=== PATIENT | male | born 1955 | race Caucasian/White ===

== ENCOUNTER → 2022-07-16 | Outpatient (CLI) | payer MEDICARE, OTHER ==
--- NOTE | 2022-07-16 13:27 | CT ---
EXAMINATION TYPE: CT chest w con DATE OF EXAM: 07/16/2022 COMPARISON: None at this location HISTORY: Pulmonary nodule, status post partial lobectomy.r CT DLP: 236 mGycm, Automated exposure control for dose reduction was used. CONTRAST: Performed injected with 100ml mL of Isovue 370. TECHNIQUE: Axial images were obtained at 5 mm thick sections. Reconstructed images are reviewed on [employer] computer in the coronal plane. FINDINGS: Portion of the thyroid visualized is normal. No suspicious lung nodules or focal infiltrates are present. Emphysematous changes are in the upper l [facility]. There is a posterior nodule measuring 0.3 cm left lung. Series 4 image 16. Monitoring with follow-up chest CT 6 months. No enlarged mediastinal or hilar adenopathy is evident. The ascending aorta diameter at the level o f the main pulmonary artery is 3.2 cm. The main pulmonary artery diameter at the bifurcation is 2.[address] sections are obtained through the upper abdomen. Abdomen is essentially unremarkable. IMPRESSIONS: 1. Tiny nodule posterior left lung. Follow-up exam in 6 months to confirm stability is recommended.
== END | disposition home or self-care (01) ==
LOC: RADCTMAIN 12:27
PROVIDERS: ATTEND Family Medicine
DX: R91.1 Solitary pulmonary nodule (principal)
CPT/HCPCS: 71260; Q9967

== ENCOUNTER → 2023-01-15 | Outpatient (CLI) | payer MEDICARE, OTHER ==
--- NOTE | 2023-01-15 11:25 | CT ---
EXAMINATION TYPE: CT chest w con DATE OF EXAM: 01/15/2023 COMPARISON: 07/16/2022 HISTORY: f/u nodules CT DLP: 148.4 mGycm Automated exposure control for dose reduction was used. CONTRAST: CT scan of the chest is performed with IV Contrast, patient injected with 100 mL of Isovue 300. FINDINGS: LUNGS: Mild upper lobe emphysematous change. Calcified pleural-based nodule left lower lobe superior segment image 19 series 4 is unchanged and measures 3 mm. There is a new left lower lobe pulmonary no dule measuring 8.7 mm image 45 series 4. No additional nodules are present. No infiltrate or volume l oss. No evidence of pleural effusion. MEDIASTINUM: There are no greater than 1 cm hilar or mediastinal lymph nodes. No pericardial effusi on is seen. Thoracic aorta is of normal caliber. The heart is not enlarged. UPPER ABDOMEN: There is a new left adrenal nodule measuring 2.6 x 1.7 cm. Metastatic disease is not e xcluded. CT of the abdomen and pelvis is recommended. OTHER: No additional significant abnormality is seen. IMPRESSION: 1. New pulmonary nodule left lower lobe measuring 8.7 mm. In addition there is a new left adrenal nod ule. Consider PET/CT for further evaluation.
== END | disposition home or self-care (01) ==
LOC: RADCTMAIN 09:56
PROVIDERS: ATTEND Family Medicine
DX: R91.1 Solitary pulmonary nodule (principal); E27.9 Disorder of adrenal gland, unspecified
CPT/HCPCS: 82565; 84520; 71260; 36415; Q9967

== ENCOUNTER → 2023-01-25 | Outpatient (CLI) | payer MEDICARE, OTHER ==
--- NOTE | 2023-01-27 19:23 | CT ---
EXAMINATION TYPE: CT abdomen pelvis w con CT DLP: 399.9 mGycm, Automated exposure control for dose reduction was used. DATE OF EXAM: 01/25/2023 11:54 AM COMPARISON: CT abdomen pelvis most recent from chest 01/15/2023 and chest 07/16/2022. CLINICAL INDICATION:Male, 67 years old with history of E27.8 disorder of adrenal gland; adrenal mass history of cancer. TECHNIQUE: Axial CT of the abdomen and pelvis. Sagittal and coronal reformats were created on a [employer] workstation. Contrast used:100 mL of Isovue 300 with IV Contrast, Oral contrast used: with Oral Contrast FINDINGS: LOWER CHEST: Left lower lobe pulmonary nodule redemonstrated measuring at least 10 x 6 mm. ABDOMEN LIVER: Unremarkable GALLBLADDER AND BILE DUCTS: Unremarkable. PANCREAS: Unremarkable. SPLEEN: Unremarkable. ADRENAL GLANDS: Left adrenal gland mass measuring 2.0 cm with some irregular linear enhancing compone nt noted. The right adrenal gland is unremarkable. KIDNEYS AND URETERS: No evidence of hydronephrosis or renal calculus. The ureters are unremarkable. PELVIS BLADDER: Unremarkable REPRODUCTIVE: Unremarkable. ABDOMEN & PELVIS STOMACH AND BOWEL: No evidence of bowel obstruction. Scattered colonic diverticula. PERITONEUM/RETROPERITONEUM: No evidence of pneumoperitoneum or free fluid. VASCULATURE: Infrarenal abdominal aorta ectasia up to 2.7 cm. Biiliac stent grafts which appear paten t. External iliac stent graft also present. MUSCULOSKELETAL: No acute osseous abnormalities, multilevel disc degeneration changes throughout the spine. LYMPH NODES: No gross evidence for lymphadenopathy. SOFT TISSUE/ABDOMINAL WALL: Left fat-containing inguinal hernia. IMPRESSION: 1. Left adrenal nodule measuring up to 2.0 cm remains indeterminate given nonadrenal mass protocol t doroteo. Finding could represent metastatic disease given pulmonary nodule and that this is not seen on 07/16/2022. 2. Given the pulmonary nodule is present and new from 07/16/2022 CT a PET/CT it remains recommended. 3. Patent bilateral iliac and right external iliac stent grafts.
== END | disposition home or self-care (01) ==
LOC: RADCTMAIN 09:51
PROVIDERS: ATTEND Family Medicine
DX: E27.8 Other specified disorders of adrenal gland (principal); R91.1 Solitary pulmonary nodule; Z95.828 Presence of other vascular implants and grafts
CPT/HCPCS: 82565; 84520; 74177; 36415; Q9967

== ENCOUNTER → 2023-02-15 | Outpatient (CLI) | payer MEDICARE, OTHER ==
--- NOTE | 2023-02-16 13:39 | PE ---
EXAMINATION TYPE: PET CT fusion skull to thigh DATE OF EXAM: 02/15/2023 CLINICAL INDICATION:Male, 68 years old with history of C34.32 lung ca; TECHNIQUE: Following the intravenous administration of 9.4 mCi of F-18 FDG, whole body images are p erformed from the skull base to the midthigh. Images are reviewed on the computer in the coronal, ax ial, and sagittal planes. Reconstructed rotating images are created on independent workstation and r eviewed on the computer. A non-contrast CT is performed in conjunction with the PET scan. Glucose l evel 99 mg/dL COMPARISON: CT 01/15/2023, 01/25/2023 07/16/2022, PET/CT None, FINDINGS: Mediastinal SUV mean is 1.5. Hepatic parenchyma SUV mean is 2.1. SKULL BASE AND NECK: No suspicious radiotracer activity. CHEST, MEDIASTINUM, AND HILAR REGION: * Postsurgical changes right upper lung there is mild mild FDG activity along the medial aspect Max SUV 2.5. * Left lower lobe 9 x 5 mm pulmonary nodule Max SUV 0.9. ABDOMEN AND PELVIS: Left pulmonary nodule with increased FDG activity max SUV 8.2 measuring 2.7 x 2.7 cm. OSSEOUS STRUCTURES: No suspicious radiotracer activity. OTHER CT: Atherosclerosis of the carotid bifurcation. Infrarenal aortic fusiform aneurysmal dilation up to 2.8 cm. Aortocaval biiliac stent graft is present. Right external iliac stent graft is present . Moderate emphysema changes are seen throughout the lungs. IMPRESSION: 1. Left adrenal nodule compatible with metastatic disease. 2. Left lower lung pulmonary nodules which is also suspicious for metastatic disease. 3. Mild FDG activity along the surgical margin medially could represent treatment change versus pers istent disease, attention follow-up imaging.
== END | disposition home or self-care (01) ==
LOC: RADPETMAIN 12:14
PROVIDERS: ATTEND Family Medicine
DX: C34.32 Malignant neoplasm of lower lobe, left bronchus or lung (principal); R91.8 Other nonspecific abnormal finding of lung field
CPT/HCPCS: 78815; A9552

== ENCOUNTER → 2023-07-12 | Outpatient (CLI) | payer MEDICARE, OTHER ==
--- NOTE | 2023-07-14 22:54 | PE ---
EXAMINATION TYPE: PET CT fusion skull to thigh DATE OF EXAM: 07/12/2023 COMPARISON: 01/25/2023 CT abdomen and pelvis Prior PET/CT: 02/15/2023 HISTORY: Neoplasm uncertain behavior left adrenal gland TECHNIQUE: Following the intravenous administration of 13.5 mCi of F-18 FDG, whole body images are p erformed from the skull base to the midthigh. Images are reviewed on the computer in the coronal, ax ial, and sagittal planes. Reconstructed rotating images are created on independent workstation and r eviewed on the computer. A localization and attenuation correction CT is performed in conjunction w ith the PET scan. DLP: 256.09 mGycm SCAN: Subsequent Blood glucose: 96 mg/dL Average Mediastinum SUV: 1.63 Average Liver SUV: 2.01 FINDINGS: NECK: No abnormal uptake THORAX: There may be some mild increased uptake within the posterior superior right hilar region, juan ge 79, SUV 2.39. Some mild increased uptake may be within the aortopulmonic window, image 79, SUV 2.0 5. There is a nodule within the posterior right lung base with an SUV value of 1.96, image 25. This is i ncreasing from comparison. ABDOMEN: There is mild uptake within the left adrenal gland with SUV of 2.06. This is diminished from the comparison previously 6.66. There is some uptake within the subcutaneous tissues right lateral abdomen, image 135, SUV 1.95. This is increased from comparison. Subcutaneous neoplasm is not excluded. PELVIS: No abnormal uptake. There is uptake within the urinary bladder and with blooming effects to the expected regions of the u reters. OSSEOUS STRUCTURES: No abnormal uptake LOCALIZATION CT: Abdominal aortic aneurysm with stenting is evident. COMPARISON: Previous marked uptake within the left adrenal gland is diminished. Previous SUV 6.66. Up take within the posterior left lung nodule as previously 0.86 and has increased over the interval. IMPRESSION: 1. Increasing uptake within the posterior left lung nodule. Small neoplasm should be considered withi n the differential. This is intermediate SUV and other etiologies should be considered. 2. Suspicion of developing right suprahilar and aortopulmonic window abnormal adenopathy with uptake. This is new from comparison. 3. Previous marked uptake within the left adrenal gland has significantly diminished over the interva l. 4. There may be developing subcutaneous abnormal uptake in the right lateral abdomen and flank.
== END | disposition home or self-care (01) ==
LOC: RADPETMAIN 07:52
PROVIDERS: ATTEND Internal Medicine
DX: D44.12 Neoplasm of uncertain behavior of left adrenal gland (principal); R91.1 Solitary pulmonary nodule
CPT/HCPCS: 78815; A9552

== ENCOUNTER → 2023-09-19 | Outpatient (CLI) | payer MEDICARE, OTHER ==
--- NOTE | 2023-09-22 14:15 | PE ---
EXAMINATION TYPE: PET CT fusion skull to thigh DATE OF EXAM: 09/19/2023 CLINICAL INDICATION:Male, 68 years old with history of D44.12 adrenal ca; TECHNIQUE: Following the intravenous administration of 12.0 mCi of F-18 FDG, whole body images are performed from the skull base to the midthigh. Images are reviewed on the computer in the coronal, a xial, and sagittal planes. Reconstructed rotating images are created on independent workstation and reviewed on the computer. A non-contrast CT is performed in conjunction with the PET scan. Glucose level 86 mg/dL CT DLP: 207 mGycm, Automated exposure control for dose reduction was used. COMPARISON: CT None, PET/CT 07/12/2023., FINDINGS: Mediastinal SUV mean is 2.7. Hepatic parenchyma SUV mean is 2.1. SKULL BASE AND NECK: No suspicious radiotracer activity. CHEST, MEDIASTINUM, AND HILAR REGION: * Right lower paratracheal lymph node max SUV 4.8 previously not present. * Left 10 L lymph node with increased metabolic activity max SUV 5.0, previously not seen. * Left lower lobe nodule measuring 15 mm Max SUV 4.2, previously 2.0. Previously measuring 11 mm. ABDOMEN AND PELVIS: * Left adrenal Adrenal nodule Max SUV 5.6 previously 2.2. * Right lateral abdomen uptake on prior is felt to be contamination artifact. MUSCULOSKELETAL STRUCTURES: No suspicious radiotracer activity. OTHER CT: Atherosclerosis of the carotid bifurcation. Infrarenal aortic fusiform aneurysmal dilation up to 2.8 cm. Aortocaval biiliac stent graft is present. Right external iliac stent graft is present . Moderate emphysema changes are seen throughout the lungs. IMPRESSION: 1. Findings suspicious for neoplasm particularly involving the left lower lobe pulmonary nodule whic h is increase in size and metabolic activity. There is also interval increase in left adrenal nodule metabolic activity as well. 2. Indeterminate lymph nodes in the mediastinum possibly neoplastic versus infectious/inflammatory.
== END | disposition home or self-care (01) ==
LOC: RADPETMAIN 10:44
PROVIDERS: ATTEND Internal Medicine
DX: D44.12 Neoplasm of uncertain behavior of left adrenal gland (principal); R91.1 Solitary pulmonary nodule
CPT/HCPCS: 78815; A9552

== ENCOUNTER → 2023-10-12 | Outpatient (CLI) | payer MEDICARE, OTHER ==
--- NOTE | 2023-10-13 10:09 | MR ---
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 The patient was then given intravenous contrast and multi planar, T1 fat-saturation images wer e obtained. IV Contrast: 5.5 cc Gadavist FINDINGS: The álvarez-white junctions, ventricular system, basal cisterns appear unremarkable. Diffusion-weighted imaging shows no evidence of restricted diffusion to suggest acute/subacute infarct. Intracranial ar terial flow voids are maintained. Midline structures show no abnormality. Scattered foci of high T2 s ignal intensity are seen within the periventricular white matter. The susceptibility weighted images do not reveal any evidence for micro-hemorrhage. After administration of gadolinium, no abnormal enha ncement is seen. The bone marrow signal is within normal limits. Paranasal sinuses and mastoid air cells: Mild scattered paranasal sinus disease. Visualized orbits: Orbital contents are intact. IMPRESSION: 1. No evidence of intracranial mass, acute/subacute infarct, or abnormal enhancement. 2. Nonspecific white matter changes, likely related to small vessel ischemic disease.
== END | disposition home or self-care (01) ==
LOC: RADMRIMAIN 11:01
PROVIDERS: ATTEND Radiology Radiation Oncology
DX: C79.72 Secondary malignant neoplasm of left adrenal gland (principal); C80.1 Malignant (primary) neoplasm, unspecified; R90.82 White matter disease, unspecified
CPT/HCPCS: 70553; A9585

== ENCOUNTER → 2024-02-23 | Outpatient (CLI) | payer MEDICARE, OTHER ==
--- NOTE | 2024-02-24 08:05 | PE ---
EXAMINATION TYPE: PET CT fusion skull to thigh DATE OF EXAM: 02/24/2024 COMPARISON: CT chest abdomen 12/05/2023 Prior PET/CT: 09/19/2023 HISTORY: Malignancy left lung TECHNIQUE: Following the intravenous administration of 10.67 mCi of F-18 FDG, whole body images are performed from the skull base to the midthigh. Images are reviewed on the computer in the coronal, a xial, and sagittal planes. Reconstructed rotating images are created on independent workstation and reviewed on the computer. A localization and attenuation correction CT is performed in conjunction with the PET scan. DLP: 232.57 mGycm SCAN: Subsequent Blood glucose: 102 mg/dL Average Mediastinum SUV: 1.66 Average Liver SUV: 2.05 FINDINGS: NECK: No abnormal uptake THORAX: The right supraclavicular region there is a focus of increased radiotracer measuring 2.5. Coco ge 68. There is a small focus of radiotracer within the superior mediastinum, image 70, SUV 2.80. There is some mild increased uptake within densities within the left lower lobe, example image 117, S UV 2.5 to. Some additional smaller milder areas of uptake or adjacent, example image 124, SUV 1.18. ABDOMEN: No abnormal uptake PELVIS: No abnormal uptake OSSEOUS STRUCTURES: There is some mild increased uptake at the right first costovertebral junction wi th an SUV of 2.79. Degenerative changes are suspected. Metastasis is not excluded. Similar mild uptak e is the left upper costovertebral junction, image 75, SUV 2.2. LOCALIZATION CT: There is enlarging prominence of the left adrenal gland comparison. However, uptake is diminished from prior study. COMPARISON: The uptake within the costovertebral junctions is new. Upper mediastinal uptake is new. P rior pretracheal and aortopulmonic window uptake is not identified on the current exam. Density withi n the posterior left lung is smaller with diminished radiotracer current exam. Uptake within the enla rged left adrenal gland appears diminished from comparison IMPRESSION: 1. Resolving uptake within a left posterior lung mass. Prior mediastinal uptake and uptake within the left adrenal gland is diminished from comparison. 2. There is new uptake identified within the superior mediastinum and couple of costovertebral juncti ons not evident on the prior study. New metastasis are not excluded at these levels.
== END | disposition home or self-care (01) ==
LOC: RADPETMAIN 12:28
PROVIDERS: ATTEND Radiology Radiation Oncology
DX: C78.02 Secondary malignant neoplasm of left lung (principal); C77.1 Secondary and unspecified malignant neoplasm of intrathoracic lymph nodes; C79.72 Secondary malignant neoplasm of left adrenal gland; C80.1 Malignant (primary) neoplasm, unspecified; R91.8 Other nonspecific abnormal finding of lung field
CPT/HCPCS: 78815; A9552

== ENCOUNTER → 2024-04-23 | Outpatient (CLI) | payer MEDICARE, OTHER ==
--- NOTE | 2024-04-25 09:44 | PE ---
EXAMINATION TYPE: PET CT fusion skull to thigh DATE OF EXAM: 04/23/2024 CLINICAL INDICATION:Male, 69 years old with history of C34.31 LUNG CANCER; TECHNIQUE: Following the intravenous administration of 9.18 mCi of F-18 FDG, whole body images are performed from the skull base to the midthigh. Images are reviewed on the computer in the coronal, a xial, and sagittal planes. Reconstructed rotating images are created on independent workstation and reviewed on the computer. A non-contrast CT is performed in conjunction with the PET scan. Glucose level 103 mg/dL CT DLP: 191 mGycm, Automated exposure control for dose reduction was used. COMPARISON: CT None, PET/CT 02/24/2024, MRI: None FINDINGS: Mediastinal SUV mean is 2.0. Hepatic parenchyma SUV mean is 2.4. SKULL BASE AND NECK: No suspicious radiotracer activity. CHEST, MEDIASTINUM, AND HILAR REGION: * Left paratracheal lymph node measuring Max SUV 4.1 measuring 5 mm previously max SUV 2.9. * Left 10 L lymph node with increased metabolic activity max SUV 5.0, previously not seen. * Left lower lobe nodule measuring 15 mm Max SUV 4.2, previously 2.0. Previously measuring 11 mm. ABDOMEN AND PELVIS: * Left adrenal Adrenal nodule Max SUV 5.6 previously 2.2. * Right segment 6 of the liver max SUV 11.1 and 63.2 in this area. * Uptake under the Rubén of the diaphragm on the left Max SUV 5.0, previously 1.8. Left adrenal gland nodular uptake more lateral max SUV 4.5 and more anterior medial maxillary 4.1. This has a different morphology with decreased mass but increased metabolic activity compared to prior. MUSCULOSKELETAL STRUCTURES: Increasing metabolic activity of right transverse process of T1 max SUV 9.0, previously 2.9. Increasi ng metabolic activity of the left transverse process of T4 max SUV 9.8, previously 2.2. OTHER CT: Atherosclerosis of the carotid bifurcation. Infrarenal aortic fusiform aneurysmal dilation up to 2.8 cm. Aortocaval biiliac stent graft is present. Right external iliac stent graft is present . Moderate emphysema changes are seen throughout the lungs. IMPRESSION: Progression of disease with new/increasing metabolic activity within the T1 and T4 vertebral bodies, new lesion in the right hepatic lobe and decreased volume but increased metabolic activity of the lef t adrenal uptake. Additionally left maribell of diaphragm focus of uptake is suspicious for metastatic di sease.
== END | disposition home or self-care (01) ==
LOC: RADPETMAIN 10:58
PROVIDERS: ATTEND Radiology Radiation Oncology
DX: C34.31 Malignant neoplasm of lower lobe, right bronchus or lung (principal); C78.02 Secondary malignant neoplasm of left lung; C77.1 Secondary and unspecified malignant neoplasm of intrathoracic lymph nodes; C80.1 Malignant (primary) neoplasm, unspecified; C79.72 Secondary malignant neoplasm of left adrenal gland
CPT/HCPCS: 78815; A9552

== ENCOUNTER → 2024-05-11 | Day surgery (SDC) | payer MEDICARE, OTHER ==
--- NOTE | 2024-06-18 15:00 | CT ---
EXAMINATION TYPE: CT biopsy liver DATE OF EXAM: 06/18/2024 1:18 PM CLINICAL INDICATION:Male, 69 years old with history of Lung CA; COMPARISON: 04/23/2024 ATTENDING: Dr. Jose La TECHNIQUE: CT guided percutaneous biopsy of using coaxial method. One or more CT dose reduction strategies were utilized during this examination. Total CT dose 965 mGycm. FINDINGS: The procedure was explained to the patient including risks of bleeding, bruising, infection, damage t o nearby organs and need for additional therapy including potential surgery. All questions were answ ered and consent was obtained. The previous studies were reviewed. The patient was placed on the CT couch in the supine position. The overlying skin was marked and prepped using sterile method. Timeout was taken per protocol. Follo wing administration of local anesthesia a 17 gauge coaxial needle was introduced on the right hepatic lobe mass. The coaxial needle tip was directed into the mass with CT guidance. Multiple 18 gauge c oaxial biopsies were then obtained. Following the procedure the needle was removed and sterile diego ssing was applied to the percutaneous site. Post biopsy imaging demonstrated no evidence of hemorrha ge. Patient was taken for postprocedure observation in stable condition. IMPRESSIONS: Status post percutaneous right hepatic lobe mass. mass biopsy as described above. Pathology results p ending.
== END ==
LOC: RADPROMAIN 02-12 09:00
PROVIDERS: ATTEND Internal Medicine
DX: C34.31 Malignant neoplasm of lower lobe, right bronchus or lung
CPT/HCPCS: 47000; 77012; 88307; 88313; 88341; 88342

== ENCOUNTER → 2024-08-20 | Outpatient (CLI) | payer MEDICARE, OTHER ==
[2024-08-20 12:37] LABS: ALT 27 U/L (4-49); AST 26 U/L (17-59); African American GFR (CKD) 80 (>60 ml/min/1.73 sqM); Albumin 3.5 g/dL (3.5-5.0); Albumin/Globulin Ratio 1.3; Alkaline Phosphatase 101 U/L (38-126); Amylase 51 U/L (30-110); Anion Gap 6 mmol/L; Blood Urea Nitrogen 41 mg/dL (9-20); Calcium 9.9 mg/dL (8.4-10.2); Carbon Dioxide 31 mmol/L (22-30); Chloride 97 mmol/L (98-107); Globulin 2.6 g/dL; Glucose 137 mg/dL (74-99); Lipase 83 U/L (23-300); Non-African American GFR(CKD) 69 (>60 ml/min/1.73 sqM); Potassium 4.4 mmol/L (3.5-5.1); Sodium 134 mmol/L (137-145); Total Bilirubin 0.8 mg/dL (0.2-1.3); Total Protein 6.1 g/dL (6.3-8.2)
--- NOTE | 2024-08-20 13:35 | CT ---
EXAMINATION TYPE: CT abdomen pelvis w con CT DLP: 798 mGycm, Automated exposure control for dose reduction was used. DATE OF EXAM: 08/20/2024 1:13 PM COMPARISON: PET CT 04/23/2024, 02/24/2024, CT chest abdomen 12/06/2023, CT abdomen and pelvis 01/25/2023 CLINICAL INDICATION:Male, 69 years old with history of C34.32 MALIGNANT NEOPLASM OF LOWER LOBE, LEFT BRON; 10 pound wt loss in one week, pain, history of lung CA TECHNIQUE: Standard CT of the abdomen and pelvis following the administration of 100 cc of Isovue 3 00 IV contrast material. Coronal and sagittal reformats were performed. FINDINGS: LOWER CHEST: Minimal linear scarring and/or atelectasis within the left lower lobe. ABDOMEN LIVER: Increasing size of inferior right hepatic lobe 4.2 cm hypodense heterogenous lesion (series 3, image 31). Additional new hypodense satellite lesion measuring up to 7 mm (series 3, image 29). Port al venous system appears patent. GALLBLADDER AND BILE DUCTS: Unremarkable. PANCREAS: Unremarkable. SPLEEN: Couple of punctate calcified granulomas. ADRENAL GLANDS: Right adrenal gland is unremarkable. Similar thickening of the left adrenal gland. KIDNEYS AND URETERS: No evidence of hydronephrosis or renal calculus. The kidneys enhance symmetrical ly. Contrast is demonstrated within both collecting systems on the delayed phase. PELVIS BLADDER: Moderately distended. REPRODUCTIVE: Coarse calcifications of the prostate gland are identified. ABDOMEN & PELVIS STOMACH AND BOWEL: Stomach and duodenum are unremarkable. No focal bowel wall thickening or surroundi ng inflammatory changes. No evidence of bowel obstruction. PERITONEUM: No evidence of pneumoperitoneum or free fluid. VASCULATURE: Moderate atherosclerotic calcifications are present throughout the abdominal aorta and i ts branches. Bilateral common iliac artery stent is identified. Stable aneurysmal dilatation of the i nfrarenal abdominal aorta measuring up to 3.0 cm. Pelvic phleboliths. MUSCULOSKELETAL: No acute osseous abnormalities. No aggressive osseous lesion. Multilevel degenerativ e disc disease. Straightening of the normal lumbar lordosis. LYMPH NODES: No evidence for lymphadenopathy. SOFT TISSUE/ABDOMINAL WALL: Unremarkable IMPRESSION: 1. Enlarging inferior right hepatic lobe lesion now measuring up to 4.2 cm with new adjacent satellit e 0.7 cm nodule. Most consistent with progression of disease. 2. Stable thickening of the left adrenal gland. 3. Stable infrarenal abdominal aortic aneurysm measuring up to 3.0 cm. [facility], , 08/20/2024 1:33 PM
== END | disposition home or self-care (01) ==
LOC: RADCTMAIN 11:24
PROVIDERS: ATTEND Internal Medicine
DX: Z03.89 Encounter for observation for other suspected diseases and conditions ruled out (principal); C34.32 Malignant neoplasm of lower lobe, left bronchus or lung; R16.0 Hepatomegaly, not elsewhere classified; I71.43 Infrarenal abdominal aortic aneurysm, without rupture; E27.8 Other specified disorders of adrenal gland
CPT/HCPCS: 80053; 82150; 83690; 74177; Q9967

== ENCOUNTER → 2024-09-28 | Outpatient (CLI) | payer MEDICARE, OTHER ==
[2024-09-28 12:53] LABS: African American GFR (CKD) >90 (>60 ml/min/1.73 sqM); Blood Urea Nitrogen 19 mg/dL (9-20); Non-African American GFR(CKD) 86 (>60 ml/min/1.73 sqM)
--- NOTE | 2024-09-28 14:10 | CT ---
EXAMINATION TYPE: CT chest w con CT DLP: 111.8 mGycm, Automated exposure control for dose reduction was used. DATE OF EXAM: 09/28/2024 1:32 PM COMPARISON: PET CT 04/23/2024, 02/24/2024, 09/19/2023, 07/12/2023, CT chest abdomen 12/06/2023, CT chest , CT abdomen and pelvis 08/20/2024 CLINICAL INDICATION:Male, 69 years old with history of C34.32 LUNG CANCER; PHH, SOB TECHNIQUE: Multiple axial images were obtained through the chest following the administration of 100 cc of Isovue 300. . Coronal and sagittal reformats reviewed. FINDINGS: LUNGS/ PLEURA: No pleural effusion or pneumothorax. Advanced centrilobular emphysematous changes. Ne w irregular pulmonary nodular opacities identified within the right upper lung with examples includin g a right upper lung 2.2 x 1.2 cm opacity (series 4, image 24). A right upper lung 1.1 cm opacity (se christo 4, image 20). Dependent bilateral lower lung minimal atelectatic consolidative changes. Scattere d subtle reticular groundglass opacities throughout the lungs. Possibly related to pneumonitis. Posts urgical changes identified within the right upper lobe pneumonectomy. AIRWAY: Patent and unremarkable.. HEART: Size within normal limits.No pericardial effusion. MEDIASTINUM: No evidence of adenopathy. VASCULATURE: No thoracic aortic aneurysm. Atherosclerotic calcification of the aorta and its branche s. MUSCULOSKELETAL: No acute osseous abnormalities. Mild multilevel degenerative disc disease. Redemonst ration of destructive sclerotic/lytic lesion involving the left T4 transverse process. Additional reg ion identified within the posterior right T1 vertebral body. SOFT TISSUES/LYMPH NODES: Unremarkable. LOWER NECK: No significant findings. UPPER ABDOMEN: Couple punctate calcified granulomas within the spleen. Increasing size of inferior ri ght hepatic lobe hypodense lesions are prior examination measuring 5.4 and 1.4 cm, previously 4.2 and 0.7 cm before. Redemonstration of an infrarenal fusiform abdominal aortic aneurysm measures 3.0 cm. Similar thickening of the left adrenal gland. IMPRESSION: 1. Progression of disease with few new irregular spiculated opacities within the right lung suspiciou s for metastasis and marginal increase in size of hepatic lesions from prior exams. This can be furth er evaluated with PET/CT as clinically indicated. 2. Similar appearance of metastatic disease involving T1 and T4 osseous structures. 3. Similar abdominal aortic aneurysm measuring up to 3.0 cm. 4. Advanced COPD changes. [facility], , 09/28/2024 2:08 PM
== END | disposition home or self-care (01) ==
LOC: RADCTMAIN 12:06
PROVIDERS: ATTEND Internal Medicine
DX: C34.32 Malignant neoplasm of lower lobe, left bronchus or lung (principal); C79.51 Secondary malignant neoplasm of bone; I71.40 Abdominal aortic aneurysm, without rupture, unspecified; J44.9 Chronic obstructive pulmonary disease, unspecified
CPT/HCPCS: 82565; 84520; 71260; 36415; Q9967

== ENCOUNTER → 2024-10-10 | Outpatient (CLI) | payer MEDICARE, OTHER ==
--- NOTE | 2024-10-11 08:04 | MR ---
EXAMINATION TYPE: MR shoulder RT wo/w con DATE OF EXAM: 10/10/2024 2:44 PM COMPARISON: None. CLINICAL INDICATION: Male, 69 years old with history of C79.51 SECONDARY MALIGNANT NEOPLASM OF BONE, right shoulder pain, malignant neoplasm of bone, left lung, liver, lymph nodes, left adrenal gland. IV Contrast: 4.5 cc Gadobutrol (None if empty) TECHNIQUE: Multiplanar, multisequence images of the right shoulder is performed without and with 4.5 mL intravenous Gadobutrol gadolinium contrast. FINDINGS: Rotator Cuff: Intact infraspinatus tendon. Intact subscapularis tendon. Full-thickness retracted tear of at least majority of supraspinatus tendon to level of the acromion with gap measuring 1.7 cm AP d iameter sagittal image 23. Rotator cuff muscle bulk is preserved. Some edema in the inferior supraspi natus muscle bulk is noted. Acromioclavicular Joint: [id number] narrowing and moderate capsular hypertrophy is seen. Distal acromion morphology unremarkable. Glenohumeral Joint: No significant effusion. No significant spurring. Labrum: The labrum appears grossly intact given limitation of non-arthrogram study. Biceps Tendon: The long head of biceps is in normal location within bicipital groove. Bone marrow signal: No focal abnormal marrow signal is appreciated. No suspicious osseous enhancement is seen. Other: Known spiculated nodules in the right upper lungs are partially imaged. IMPRESSION: 1. No suspicious focal osseous lesion. 2. Significant retracted tear of at least majority of the supraspinatus tendon. [facility], , 10/11/2024 8:02 AM
== END | disposition home or self-care (01) ==
LOC: RADMRIMAIN 13:28
PROVIDERS: ATTEND Radiology Radiation Oncology
DX: C79.51 Secondary malignant neoplasm of bone (principal); C78.02 Secondary malignant neoplasm of left lung; C78.7 Secondary malignant neoplasm of liver and intrahepatic bile duct; C77.1 Secondary and unspecified malignant neoplasm of intrathoracic lymph nodes; C80.1 Malignant (primary) neoplasm, unspecified; C79.72 Secondary malignant neoplasm of left adrenal gland; M75.111 Incomplete rotator cuff tear or rupture of right shoulder, not specified as traumatic
CPT/HCPCS: 73223; A9585

== ENCOUNTER 2024-12-10 21:12 | Inpatient (IN) | payer MEDICARE, OTHER ==
[2024-12-10] MEDS: SODIUM CHLORIDE 0.9% 1,000 ML IV ONE (22:08)
[2024-12-10 22:22] LABS: Anisocytosis Moderate; Basophils % (A) 0 %; Eosinophils # (A) 0.2 k/uL (0-0.7); Eosinophils % (A) 3 %; HCT 28.1 % (39.0-53.0); HGB 8.6 gm/dL (13.0-17.5); Hypochromasia Marked; Lymphocytes # (A) 0.3 k/uL (1.0-4.8); Lymphocytes % (A) 3 %; MCH 30.8 pg (25.0-35.0); MCHC 30.7 g/dL (31.0-37.0); MCV 100.2 fL (80.0-100.0); Macrocytosis Moderate; Monocytes # (A) 0.1 k/uL (0-1.0); Monocytes % (A) 2 %; Neutrophils % (A) 91 %; RBC 2.81 m/uL (4.30-5.90); RDW 20.1 % (11.5-15.5); WBC 7.7 k/uL (3.8-10.6)
[2024-12-10 22:36] LABS: ALT 31 U/L (4-49); AST 198 U/L (17-59); African American GFR (CKD) >90 (>60 ml/min/1.73 sqM); Alkaline Phosphatase 177 U/L (38-126); Anion Gap 7 mmol/L; Blood Urea Nitrogen 25 mg/dL (9-20); Calcium 8.5 mg/dL (8.4-10.2); Carbon Dioxide 32 mmol/L (22-30); Chloride 97 mmol/L (98-107); Glucose 147 mg/dL (74-99); Magnesium 1.2 mg/dL (1.6-2.3); Non-African American GFR(CKD) >90 (>60 ml/min/1.73 sqM); Potassium 4.4 mmol/L (3.5-5.1); Sodium 136 mmol/L (137-145); Total Bilirubin 0.9 mg/dL (0.2-1.3); Total Protein 5.5 g/dL (6.3-8.2)
[2024-12-10] MEDS: MAGNESIUM SULFATE-D5W PMX 1 GM in DEXTROSE/WATER 1 100ML.BAG IVPB SCH (23:25)
[2024-12-10 23:45] LABS: Platelet Count 34 k/uL (150-450)
[2024-12-11] MEDS: SODIUM CHLORIDE 0.9% 1,000 ML IV ONE (01:46)
--- NOTE | 2024-12-11 02:02 | CT ---
EXAM: CT Thoracic and Lumbar Spine Without Intravenous Contrast CLINICAL HISTORY: ITS.REASON CT Reason: leg numbness, hx lung ca TECHNIQUE: Axial computed tomography images of the thoracic and lumbar spine without intravenous contrast. CTDI is 4.9 mGy and DLP is 296.5 mGy-cm. This CT exam was performed using one or more of the following dose reduction techniques: automated exposure control, adjustment of the mA and/or kV according to patient size, and/or use of iterative reconstruction technique. COMPARISON: CT chest dated 09/28/24, CT abdomen pelvis dated 08/20/2024 FINDINGS: Vertebrae: Similar lytic lesions/metastases involving the T1 vertebral body and left T4 transverse process. Similar fracture of the left T4 transverse process/pathologic fracture. New T11 superior endplate compression fracture with horizontal sclerotic line. Mild 10% anterior vertebral body height loss. No significant retropulsion. Minimal paravertebral stranding. Discs/spinal canal/neural foramina: Degenerative changes of the lumbar spine, similar to the prior. Most severe at L4-L5. Diffuse disc bulge and facet arthropathy with moderate canal stenosis. Severe right foraminal stenosis and moderate left foraminal stenosis. Other bones/joints: Old right rib fracture/deformities, stable. Soft tissues: Unremarkable. Vasculature: Stable abdominal aortic aneurysm 3 cm. Bilateral iliac stents. Lungs: Severe emphysema and multiple lung nodules, partially visualized. Some nodules are new since the prior/increased metastases. Heart: Coronary calcifications. Liver: Increased size of the partially visualized right hepatic lobe lesion/metastasis. Adrenals: Stable thickened left adrenal gland. Stomach and bowel: Large amount of stool in the partially visualized rectum. IMPRESSION: 1. New T11 superior endplate compression with mild anterior height loss. No significant retropulsion. 2. Similar lytic lesions/metastases involving the T1 vertebral body and left T4 transverse process. Similar fracture of the left T4 transverse process/pathologic fracture. 3. Degenerative changes of the lumbar spine, similar to the prior. Most severe at L4-L5. Diffuse disc bulge and facet arthropathy with moderate canal stenosis. Severe right foraminal stenosis and moderate left foraminal stenosis. 4. Severe emphysema and multiple lung nodules, partially visualized. Some nodules are new since the prior/increased metastases. Correlate with other priors if available and consider chest CT. 5. Increased size of the partially visualized right hepatic lobe lesion/metastasis.
--- NOTE | 2024-12-11 02:26 | ED ---
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 Patient states for the past week he has had intermittent paresthesias and a burning sensation to his bilateral lower extremities. States that it starts in his thighs and goes down to his toes. He denies any saddle anesthesia. No bowel or bladder incontinence. Patient previously had symptoms similar in his right upper extremity was found to have lytic lesions in T1 and T4. Patient denies ever having lower extremity paresthesias. He is currently under the care of Dr. Costa and received radiation on his spine. He is also on chemotherapy. He denies any fevers. No nausea or vomiting. No chest pain or difficulty breathing. No other alleviating, precipitating modifying factors - Related Data Home Medications Medication Instructions Recorded Confirmed Albuterol Sulfate [Albuterol 2 puff PO RT-QID PRN 11/19/24 11/19/24 Sulfate Hfa] LORazepam [Ativan] 0.5 mg PO HS 11/19/24 11/19/24 Morphine Sulfate ER [Ms Contin] 15 mg PO Q12HR 11/19/24 11/19/24 Morphine Sulfate Ir [MSIR] 15 mg PO Q4H 11/19/24 11/19/24 Allergies Allergy/AdvReac Type Severity Reaction Status Date / Time No Known Allergies Allergy Verified 12/10/24 21:26 Review of Systems ROS Statement: Those systems with pertinent positive or pertinent negative responses have been documented in the HPI. ROS Other: All systems not noted in ROS Statement are negative. Past Medical History Past Medical History: Cancer, COPD, Osteoarthritis (OA) Additional Past Medical History / Comment(s): lung cancer, radiation and chemo, spinal CA History of Any Multi-Drug Resistant Organisms: None Reported Past Surgical History: Tonsillectomy Additional Past Surgical History / Comment(s): stent in aorta, stents in iliac artery, lobectomy right upper lung Past Psychological History: No Psychological Hx Reported Smoking Status: Current every day smoker - Past Family History Father History Unknown: Yes Family Medical History: Cancer Additional Family Medical History / Comment(s): Lung cancer. General Exam General appearance: alert, in no apparent distress Head exam: Present: atraumatic, normocephalic, normal inspection Eye exam: Present: normal appearance, PERRL, EOMI. Absent: scleral icterus, conjunctival injection, periorbital swelling ENT exam: Present: normal exam, mucous membranes moist Neck exam: Present: normal inspection. Absent: tenderness, meningismus, lymphadenopathy Respiratory exam: Present: normal lung sounds bilaterally. Absent: respiratory distress, wheezes, rales, rhonchi, stridor Cardiovascular Exam: Present: regular rate, normal rhythm, normal heart sounds. Absent: systolic murmur, diastolic murmur, rubs, gallop, clicks GI/Abdominal exam: Present: soft, normal bowel sounds. Absent: distended, tenderness, guarding, rebound, rigid Extremities exam: Present: full ROM, normal capillary refill, other (Report to decrease sensation to soft touch of the bilateral lower extremities over the medial, lateral and dorsal aspects). Absent: tenderness, pedal edema, joint swelling, calf tenderness Back exam: Present: normal inspection Neurological exam: Present: alert, oriented X3, CN II-XII intact Psychiatric exam: Present: normal affect, normal mood Skin exam: Present: warm, dry, intact, normal color. Absent: rash Course Vital Signs 12/10/24 12/10/24 12/10/24 21:19 21:27 23:27 Temperature 98.4 F Pulse Rate 72 105 H 101 H Respiratory 18 18 17 Rate Blood Pressure 92/62 92/62 83/55 O2 Sat by Pulse 94 L Oximetry 12/11/24 01:45 Temperature Pulse Rate 93 Respiratory 17 Rate Blood Pressure 85/59 O2 Sat by Pulse 95 Oximetry Medical Decision Making - Medical Decision Making Was pt. sent in by a medical professional or institution (, PA, [employer], urgent care, hospital, or [place] health care facility...) When possible be specific @ -[No] Did you speak to anyone other than the patient for history (EMS, parent, family, police, friend...)? What history was obtained from this source @ -[No] Did you review nursing and triage notes (agree or disagree)? Why? @ -[I reviewed and agree with nursing and triage notes] Were old charts reviewed (outside hosp., previous admission, EMS record, old EKG, old radiological studies, urgent care reports/EKG's, [place] health care facility records)? Report findings @ -[No old charts were reviewed] Differential Diagnosis (chest pain, altered mental status, abdominal pain women, abdominal pain men, vaginal bleeding, weakness, fever, dyspnea, syncope, h eadache, dizziness, GI bleed, back pain, seizure, CVA, palpatations, mental health, musculoskeletal)? @ -[not applicable] EKG interpreted by me (3pts min.). @ -[As above] X-rays interpreted by me (1pt min.). @ -[None done] CT interpreted by me (1pt min.). @ -[None done] U/S interpreted by me (1pt. min.). @ -[None done] What testing was considered but not performed or refused? (CT, X-rays, U/S, labs)? Why? @ -[None] What meds were considered but not given or refused? Why? @ -[None] Did you discuss the management of the patient with other professionals (professionals i.e. , PA, [employer], lab, RT, psych nurse, social studies teacher, quality coordinator, teacher, control systems drafting officer, case work aide)? Give summary @ -[No] Was smoking cessation discussed for >3mins.? @ -[No] Was critical care preformed (if so, how long)? @ -[No] Were there social determinants of health that impacted care today? How? (Homelessness, low income, unemployed, alcoholism, drug addiction, transportation, low edu. Level, literacy, decrease access to med. care, skilled nursing, rehab)? @ -[No] Was there de-escalation of care discussed even if they declined (Discuss DNR or withdrawal of care, Hospice)? DNR status @ -[No] What co-morbidities impacted this encounter? (DM, HTN, Smoking, COPD, CAD, Cancer, CVA, ARF, Chemo, Hep., AIDS, mental health diagnosis, sleep apnea, morbid obesity)? @ -[None] Was patient admitted / discharged? Hospital course, mention meds given and route, prescriptions, significant lab abnormalities, going to OR and other pertinent info. @ -[hospital course] Undiagnosed new problem with uncertain prognosis? @ -[No] Drug Therapy requiring intensive monitoring for toxicity (Heparin, Nitro, Insulin, Cardizem)? @ -[No] Were any procedures done? @ -[No] Diagnosis/symptom? @ -[default] Acute, or Chronic, or Acute on Chronic? @ -[default] Uncomplicated (without systemic symptoms) or Complicated (systemic symptoms)? @ -[default] Side effects of treatment? @ -[No] Exacerbation, Progression, or Severe Exacerbation? @ -[No] Poses a threat to life or bodily function? How? (Chest pain, USA, ND, pneumonia, PE, COPD, DKA, ARF, appy, cholecystitis, CVA, Diverticulitis, Homicidal, Suicidal, threat to staff... and all critical care pts) @ -[No] - Lab Data Result diagrams: 12/10/24 22:06 12/10/24 22:06 Lab Results 12/10/24 12/10/24 12/10/24 Range/Units 22:06 22:06 22:06 WBC 7.7 (3.8-10.6) k/uL RBC 2.81 L (4.30-5.90) m/uL Hgb 8.6 L (13.0-17.5) gm/dL Hct 28.1 L (39.0-53.0) % MCV 100.2 H (80.0-100.0) fL MCH 30.8 (25.0-35.0) pg MCHC 30.7 L (31.0-37.0) g/dL RDW 20.1 H (11.5-15.5) % Plt Count 34 L D (150-450) k/uL MPV 10.0 Neutrophils % 91 % Lymphocytes % 3 % Monocytes % 2 % Eosinophils % 3 % Basophils % 0 % Neutrophils # 7.0 (1.3-7.7) k/uL Lymphocytes # 0.3 L (1.0-4.8) k/uL Monocytes # 0.1 (0-1.0) k/uL Eosinophils # 0.2 (0-0.7) k/uL Basophils # 0.0 (0-0.2) k/uL Hypochromasia Marked Anisocytosis Moderate Macrocytosis Moderate Sodium 136 L (137-145) mmol/L Potassium 4.4 (3.5-5.1) mmol/L Chloride 97 L (98-107) mmol/L Carbon Dioxide 32 H (22-30) mmol/L Anion Gap 7 mmol/L BUN 25 H (9-20) mg/dL Creatinine 0.80 (0.66-1.25) mg/dL Est GFR (CKD-EPI)AfAm >90 (>60 ml/min/1.73 sqM) Est GFR (CKD-EPI)NonAf >90 (>60 ml/min/1.73 sqM) Glucose 147 H (74-99) mg/dL Lactic Ac Sepsis Rflx Plasma Lactic Acid Jose Elias 2.9 H* (0.7-2.0) mmol/L Calcium 8.5 (8.4-10.2) mg/dL Magnesium 1.2 L (1.6-2.3) mg/dL Total Bilirubin 0.9 (0.2-1.3) mg/dL AST 198 H (17-59) U/L ALT 31 (4-49) U/L Alkaline Phosphatase 177 H (38-126) U/L Total Protein 5.5 L (6.3-8.2) g/dL Albumin 3.0 L (3.5-5.0) g/dL 12/10/24 Range/Units 22:39 WBC (3.8-10.6) k/uL RBC (4.30-5.90) m/uL Hgb (13.0-17.5) gm/dL Hct (39.0-53.0) % MCV (80.0-100.0) fL MCH (25.0-35.0) pg MCHC (31.0-37.0) g/dL RDW (11.5-15.5) % Plt Count (150-450) k/uL MPV Neutrophils % % Lymphocytes % % Monocytes % % Eosinophils % % Basophils % % Neutrophils # (1.3-7.7) k/uL Lymphocytes # (1.0-4.8) k/uL Monocytes # (0-1.0) k/uL Eosinophils # (0-0.7) k/uL Basophils # (0-0.2) k/uL Hypochromasia Anisocytosis Macrocytosis Sodium (137-145) mmol/L Potassium (3.5-5.1) mmol/L Chloride (98-107) mmol/L Carbon Dioxide (22-30) mmol/L Anion Gap mmol/L BUN (9-20) mg/dL Creatinine (0.66-1.25) mg/dL Est GFR (CKD-EPI)AfAm (>60 ml/min/1.73 sqM) Est GFR (CKD-EPI)NonAf (>60 ml/min/1.73 sqM) Glucose (74-99) mg/dL Lactic Ac Sepsis Rflx Y Plasma Lactic Acid Jose Elias (0.7-2.0) mmol/L Calcium (8.4-10.2) mg/dL Magnesium (1.6-2.3) mg/dL Total Bilirubin (0.2-1.3) mg/dL AST (17-59) U/L ALT (4-49) U/L Alkaline Phosphatase (38-126) U/L Total Protein (6.3-8.2) g/dL Albumin (3.5-5.0) g/dL Disposition Clinical Impression: Bilateral leg paresthesia, Compression fracture of T11 vertebra, Lytic bone lesions on xray, Non-small cell lung cancer (NSCLC) Disposition: ADMITTED IP TO THIS [facility] Condition: Stable Is patient prescribed a controlled substance at d/c from ED?: No Referrals: Rubén Meneses DO [Primary Care Provider] - 1-2 days Time of Disposition: 02:53 Decision to Admit Reason: Admit from EC Decision Date: 12/11/24 Decision Time: 02:53
[2024-12-11] MEDS ORDERED: ACETAMINOPHEN TAB 325 MG TAB PO PRN (02:53)
[2024-12-11] MEDS ORDERED: NALOXONE 0.4 MG/ML 1 ML VIAL IV PRN (02:53)
[2024-12-11] MEDS: DEXAMETHASONE SOD PHOSPHATE 10 MG/ML 1 ML VIAL IVP STA (03:50)
[2024-12-11] MEDS: SODIUM CHLORIDE 0.9% 1,000 ML IV SCH (03:51)
--- NOTE | 2024-12-11 09:54 | P.CNOR ---
History of Present Illness - [facility] Consult date: 12/11/24 Requesting physician: Zohra Gomez Consult reason: back pain, other (Bilateral lower extremity paresthesia) History of present illness: History of Presenting Illness Patient is a 69-year-old male who presented to the ER due to bilateral lower extremity weakness and paresthesia. Our services have been consulted due to increased back pain and lower extremity symptoms. Patient was evaluated on 11/20/2024 during his admission by our service for similar symptoms. Patient states since his last admission he has fallen twice due to his left lower extremity giving out. Patient did hit his head on the coffee table during the last fall causing abrasion and ecchymosis to the left eye. He states that when he went to bed last night 12/10/2024 that he began to have bilateral lower extremity numbness. Patient was brought into the ER via EMS. Patient states since the fall he has had diffue back pain and bilateral lower extremity weakness that has been progressing. He is currently rating his pain 1/10 on scale. Patient states that the low back pain radiates into his anterior lower extremities to his feet and toes, associated with numbness and tingling. He denies any saddle anesthesia and or bowel or bladder retention or incontinence. Patient states he has been utilizing a cane when ambulating at home. Patient does have a past medical history of non-small cell lung carcinoma with metastatic lesions to the liver, adrenals, and spine (T1-T4). Patient is under the care of Dr. Costa for radiation and chemo treatment. Patient states that he has continued taking oral morphine for pain management. Patient denies any other orthopedic history. CT scan of the thoracic lumbar spine without contrast taken 12/10/2024 demonstrates a new T11 superior endplate compression fracture with mild anterior height loss. No significant retropulsion. There is similar lytic lesions/metastatic involving the T1 vertebral body and left T4 transverse process. Similar fracture of the left T4 transverse process/pathological fracture. There is degenerative changes of the lumbar spine, similar to the prior. Most severe at L4-L5. Diffuse disc bulge and facet arthropathy with moderate canal stenosis. Severe right foraminal stenosis and moderate left foraminal stenosis. Review of Systems Pertinent positives and negatives as discussed in HPI, a complete review of systems was performed and all other systems are negative. Physical Examination General: The patient is awake and alert, in no acute distress Skin: Skin is warm and dry. There is abrasions and ecchymosis to the left eye. Neck: The neck is supple, there is no tenderness and ROM intact. Cardiovascular: There is a regular rate and rhythm. Respiratory: Respirations are non-labored. Gastrointestinal: Soft, non-distended, non-tender abdomen. Back: There is no tenderness to palpation in the midline, paralumbar, parathoracic or buttocks region. There is no obvious deformity. Musculoskeletal: ROM limited secondary to pain. Right: shoulder abduction 5/5, elbow flexors 5/5, wrist dorsiflexors 5/5. finger abductor 5/5, garden equipment mechanic 5/5, hip flexor 4/5, knee flexor 4/5, ankle dorsiflexor 4/5, ankle plantarflexion 4/5 and extensor hallucis 4/5. Left: shoulder abduction 5/5, elbow flexors 5/5, wrist dorsiflexors 5/5. finger abductor 5/5, garden equipment mechanic 5/5, hip flexor 4-/5, knee flexor 4/5, ankle dorsiflexor 3- /5, ankle plantarflexion 4/5 and extensor hallucis 3-/5. Neurological: CN 2-12 intact. There are no obvious motor or sensory deficits. Movement and coordination equal and intact. Sensory exam to light touch intact C5-T1 and intact from L2-S1. Reflexes 2/4 in bilateral upper and lower extremities. Negative Hoffmans, babinski, and clonus signs. Psychiatric: Cooperative, appropriate mood & affect, normal judgment. Assessment Metastatic lesions T1-T4 Subacute T4 left transverse process fracture Acute T11 vertebral compression fracture Bilateral lower extremity paresthesia Bilateral lower extremity weakness, L>R Multiple medical comorbidities Plan At this time we have ordered an MRI of the thoracic and lumbar spine with and without contrast for further evaluation. 2. Appreciate medical management 3. Pain management - Continue with current regimen, Lyrica 100mg BID and trial of IV Decadron will be ordered. 4. PT/OT - weightbearing as tolerated with a walker. 5. Appreciate consult. I reviewed and discussed this case with my attending Dr. Chang, whom has reviewed this chart and films and is in agreement with assessment and plan of care as outlined above. I have personally seen and examined the patient, performed the documentation and the assessment and plan as written. Number of minutes spent on the visit: 30m. Past Medical History Past Medical History: Cancer, COPD, Osteoarthritis (OA) Additional Past Medical History / Comment(s): lung cancer, radiation and chemo, spinal CA History of Any Multi-Drug Resistant Organisms: None Reported Past Surgical History: Tonsillectomy Additional Past Surgical History / Comment(s): stent in aorta, stents in iliac artery, lobectomy right upper lung Past Psychological History: No Psychological Hx Reported Smoking Status: Current every day smoker - Past Family History Father History Unknown: Yes Family Medical History: Cancer Additional Family Medical History / Comment(s): Lung cancer. Medications and Allergies Home Medications Medication Instructions Recorded Confirmed Type Albuterol Sulfate [Albuterol 2 puff PO RT-QID PRN 11/19/24 12/11/24 History Sulfate Hfa] Morphine Sulfate ER [Ms Contin] 15 mg PO Q12HR 11/19/24 12/11/24 History Morphine Sulfate Ir [MSIR] 15 mg PO Q4H 11/19/24 12/11/24 History Sennosides-Docusate Sodium 1 tab PO BID 12/11/24 12/11/24 History [Senokot-S] Allergies Allergy/AdvReac Type Severity Reaction Status Date / Time No Known Allergies Allergy Verified 12/11/24 07:21 Results - Labs Labs: Abnormal Lab Results - Last 24 Hours (Table) 12/10/24 12/10/24 12/10/24 Range/Units 22:06 22:06 22:06 RBC 2.81 L (4.30-5.90) m/uL Hgb 8.6 L (13.0-17.5) gm/dL Hct 28.1 L (39.0-53.0) % MCV 100.2 H (80.0-100.0) fL MCHC 30.7 L (31.0-37.0) g/dL RDW 20.1 H (11.5-15.5) % Plt Count 34 L D (150-450) k/uL Lymphocytes # 0.3 L (1.0-4.8) k/uL Sodium 136 L (137-145) mmol/L Chloride 97 L (98-107) mmol/L Carbon Dioxide 32 H (22-30) mmol/L BUN 25 H (9-20) mg/dL Glucose 147 H (74-99) mg/dL Plasma Lactic Acid Jose Elias 2.9 H* (0.7-2.0) mmol/L Magnesium 1.2 L (1.6-2.3) mg/dL AST 198 H (17-59) U/L Alkaline Phosphatase 177 H (38-126) U/L Total Protein 5.5 L (6.3-8.2) g/dL Albumin 3.0 L (3.5-5.0) g/dL H & H 12/10/24 Range/Units 22:06 Hgb 8.6 L (13.0-17.5) gm/dL Hct 28.1 L (39.0-53.0) % Result Diagrams: 12/10/24 22:06 12/10/24 22:06
[2024-12-11] MEDS ORDERED: ONDANSETRON 4 MG/2 ML VIAL IVP PRN (09:55)
[2024-12-11] MEDS ORDERED: HYDROmorphone 1 MG/ML 1 ML SYRINGE IVP STA (09:56)
[2024-12-11 10:30] LABS: Anisocytosis Slight; Basophils % (A) 0 %; Eosinophils % (A) 1 %; HCT 28.5 % (39.0-53.0); HGB 8.6 gm/dL (13.0-17.5); Hypochromasia Marked; Lymphocytes # (A) 0.2 k/uL (1.0-4.8); Lymphocytes % (A) 3 %; MCH 30.8 pg (25.0-35.0); MCHC 30.3 g/dL (31.0-37.0); MCV 101.7 fL (80.0-100.0); Macrocytosis Moderate; Monocytes # (A) 0.1 k/uL (0-1.0); Monocytes % (A) 2 %; Neutrophils # (A) 6.5 k/uL (1.3-7.7); Neutrophils % (A) 94 %; RDW 19.7 % (11.5-15.5); WBC 6.9 k/uL (3.8-10.6)
[2024-12-11 10:35] LABS: Platelet Count 29 k/uL (150-450)
[2024-12-11 10:36] LABS: African American GFR (CKD) >90 (>60 ml/min/1.73 sqM); Anion Gap 3 mmol/L; Blood Urea Nitrogen 20 mg/dL (9-20); Carbon Dioxide 29 mmol/L (22-30); Chloride 101 mmol/L (98-107); Glucose 166 mg/dL (74-99); Magnesium 1.6 mg/dL (1.6-2.3); Non-African American GFR(CKD) >90 (>60 ml/min/1.73 sqM); Potassium 4.4 mmol/L (3.5-5.1); Sodium 133 mmol/L (137-145)
[2024-12-11] MEDS: PREGABALIN 100 MG CAP PO SCH (10:40)
[2024-12-11] MEDS: MORPHINE SULFATE ER 15 MG TABLET PO SCH (10:40)
[2024-12-11] MEDS: PANTOPRAZOLE 40 MG TABLET PO SCH (10:40)
[2024-12-11] MEDS: MORPHINE SULFATE IR 15 MG TABLET PO SCH (10:41)
[2024-12-11] MEDS: SENNOSIDES-DOCUSATE SODIUM 1 EACH TAB PO SCH (10:41)
[2024-12-11] MEDS: ZINC OXIDE PASTE (Z-GUARD) 1 APPLIC TOPICAL SCH (10:42)
[2024-12-11] MEDS: DEXAMETHASONE SOD PHOSPHATE 4 MG/ML 1 ML VIAL IVP SCH (10:42)
[2024-12-11] MEDS: ALBUTEROL NEBULIZED 2.5 MG/3 ML INHALATION PRN (11:08)
[2024-12-11] MEDS ORDERED: Magnesium Replacement Protocol 1 EACH MISC MISCELLANE PRN (13:07)
[2024-12-11] MEDS: HYDROmorphone 1 MG/ML 1 ML SYRINGE IVP STA (14:01)
[2024-12-11 14:55] VITALS: BMI 15.5
--- NOTE | 2024-12-11 15:48 | MR ---
EXAMINATION TYPE: MR thoracic spine wo/w con DATE OF EXAM: 12/11/2024 3:13 PM COMPARISON: CTs. CLINICAL INDICATION: Male, 69 years old with history of Metastatic lesions and T11 VCF; [facility], TECHNIQUE: Multi planar, multi sequence imaging was performed utilizing: T1-weighted, short-tau inver silvio recovery and T2-weighted of the thoracic spine. IV Contrast: mL (None, if empty) FINDINGS: Multilevel degeneration changes throughout the spine with abnormal signal within the T1 vertebral bod y extending into the posterior elements.. T4 vertebral body low T1 signal also compatible with malignancy extending to the posterior elements. Spinal canal is patent at this level. T5 vertebral body mass with low T1/T2 signal also extending into the posterior element the spinal can al is patent. T9 and T11 vertebral body compression deformity compatible with fracture. Mild bony edema at this lev el.. Or bony edema at the level T11 compared to T9. There is slightly 5% height loss of these vertebral crispin dies each. No significant retropulsion or spinal canal stenosis. Multilevel degeneration changes of the spine with osteophyte patient and disc space narrowing. Postcontrast imaging demonstrates minimal enhancement of these lesions at T1, T6 and T7. There is mil d reactive enhancement at T9. There is less enhancement at the T11 vertebral body level. Small left pleural effusion present. Scattered pulmonary nodules seen on CT this level.. IMPRESSION: 1. Metastatic disease at T1 T6 and T7 vertebral bodies with. No significant spinal canal stenosis. 2. Acute/subacute compression fractures of T9 and T11 vertebral bodies with 25% loss no significant retropulsion or spinal canal stenosis. These fractures do not appear to have underlying mass to sugge st pathologic fracture. 3. Trace left pleural effusion. [facility], , 12/11/2024 3:45 PM
[2024-12-11] MEDS: NICOTINE 14MG/24HR PATCH TRANSDERM SCH (15:59)
[2024-12-11] MEDS: MAGNESIUM SULFATE-D5W PMX 1 GM in DEXTROSE/WATER 1 100ML.BAG IVPB SCH (15:59)
--- NOTE | 2024-12-11 16:43 | P.CONS ---
History of Present Illness - Reason for Consult Consult date: 12/11/24 weakness, falls Requesting physician: Cory Win - Chief Complaint weakness of LE - History of Present Illness Mr. 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 He underwent a course of SBRT to 30 Gy in 5 fractions, completing treatment on 05/24/2023. He then developed emergence of a left lower lobe nodule with mediastinal adenopathy and underwent definitive chemoradiation to 60 Gy in 30 fractions, completing treatment on 11/29/2023. He developed metastatic disease in 04/2024. He developed significant back pain and underwent a palliative course of RT to the upper T-spi ne finishing on 08/14/24. He now presents to the ER with progressive weakness in the lower extremities. The patient presented to the emergency room on 12/11/2024. He states that for the past 2 weeks he has developed worsening weakness and paresthesias of the lower extremities, left greater than right. He states that he recently has been unable to ambulate, and was previously having falls. He has been on a break from systemic therapy for the past few weeks. He reports about a 2-3 out of 10 pain in the lower back. Upon admission, a computed tomography scan of the thoracic and lumbar spine was performed. There were largely stable appearing lesions in the T1 and T4 vertebral bodies. There was a new superior endplate fracture at T11. Of note, the patient's lung lesions appear to be increasing on this scan. Since admission, the patient has been started on dexamethasone, 4 mg QID. He just completed an MRI of the thoracic spine, which revealed metastatic disease involving T1, T6 and T7. There were acute/subacute compression fractures of T9 and 11. However, there is no significant spinal stenosis or cord compression. Of note, T9 and T11 did not appear pathologic. Review of Systems Constitutional: Denies chills, Denies fever Ears, nose, mouth and throat: Denies headache Respiratory: Reports cough, Reports dyspnea Genitourinary: Denies flank pain Musculoskeletal: Reports as per HPI Integumentary: Denies rash Neurological: Denies aphasia, Denies ataxia Psychiatric: Denies anxiety Past Medical History Past Medical History: Cancer, COPD, Osteoarthritis (OA) Additional Past Medical History / Comment(s): lung cancer, radiation and chemo, spinal CA History of Any Multi-Drug Resistant Organisms: None Reported Past Surgical History: Tonsillectomy Additional Past Surgical History / Comment(s): stent in aorta, stents in iliac artery, lobectomy right upper lung Past Psychological History: No Psychological Hx Reported Smoking Status: Light tobacco smoker Past Alcohol Use History: Occasional Past Drug Use History: Marijuana Additional Drug Use History / Comment(s): THC gummies. - Past Family History Father History Unknown: Yes Family Medical History: Cancer Additional Family Medical History / Comment(s): Lung cancer. Medications and Allergies Home Medications Medication Instructions Recorded Confirmed Type Albuterol Sulfate [Albuterol 2 puff PO RT-QID PRN 11/19/24 12/11/24 History Sulfate Hfa] Morphine Sulfate ER [Ms Contin] 15 mg PO Q12HR 11/19/24 12/11/24 History Morphine Sulfate Ir [MSIR] 15 mg PO Q4H 11/19/24 12/11/24 History Sennosides-Docusate Sodium 1 tab PO BID 12/11/24 12/11/24 History [Senokot-S] Allergies Allergy/AdvReac Type Severity Reaction Status Date / Time No Known Allergies Allergy Verified 12/11/24 07:21 Physical Exam Vitals: Vital Signs Temp Pulse Pulse Resp BP BP Pulse Ox 12/11/24 16:23 60 12/11/24 12:17 98.0 F 103 H 16 102/66 94 L 12/11/24 11:18 88 12/11/24 11:09 84 12/11/24 07:58 97.6 F 105 H 16 104/64 93 L 12/11/24 07:41 97.6 F 105 H 16 104/64 93 L 12/11/24 06:40 94 17 88/63 92 L 12/11/24 03:06 93 17 89/58 92 L 12/11/24 01:45 93 17 85/59 95 12/10/24 23:27 101 H 17 83/55 12/10/24 21:27 105 H 18 92/62 12/10/24 21:19 98.4 F 72 18 92/62 94 L Intake and Output 12/11/24 12/11/24 12/11/24 06:59 14:59 22:59 Intake Total 2098 Output Total 800 Balance 1298 Intake: Oral 2098 Output: Urine 800 Other: Voiding Method Diaper Incontinent Weight 42.5 kg 42.5 kg - Constitutional General appearance: thin - EENT Eyes: EOMI, PERRLA ENT: hearing grossly normal - Neck Neck: no lymphadenopathy - Respiratory Respiratory: bilateral: diminished - Cardiovascular Rhythm: regular - Gastrointestinal General gastrointestinal: soft, no tenderness - Neurologic Neurologic: CNII-XII intact - Musculoskeletal Musculoskeletal: no right sided weakness (Right arm weakness is ongoing for months. ), left sided weakness (3/5 LLE ankle flexion, 4+/5 knee extension. ) - Psychiatric Psychiatric: A&O x's 3, appropriate affect Results CBC & Chem 7: 12/11/24 10:06 12/11/24 10:06 Labs: Abnormal Lab Results - Last 24 Hours (Table) 12/10/24 12/10/24 12/10/24 Range/Units 22:06 22:06 22:06 RBC 2.81 L (4.30-5.90) m/uL Hgb 8.6 L (13.0-17.5) gm/dL Hct 28.1 L (39.0-53.0) % MCV 100.2 H (80.0-100.0) fL MCHC 30.7 L (31.0-37.0) g/dL RDW 20.1 H (11.5-15.5) % Plt Count 34 L D (150-450) k/uL Lymphocytes # 0.3 L (1.0-4.8) k/uL Sodium 136 L (137-145) mmol/L Chloride 97 L (98-107) mmol/L Carbon Dioxide 32 H (22-30) mmol/L BUN 25 H (9-20) mg/dL Creatinine (0.66-1.25) mg/dL Glucose 147 H (74-99) mg/dL Plasma Lactic Acid Jose Elias 2.9 H* (0.7-2.0) mmol/L Calcium (8.4-10.2) mg/dL Magnesium 1.2 L (1.6-2.3) mg/dL AST 198 H (17-59) U/L Alkaline Phosphatase 177 H (38-126) U/L Total Protein 5.5 L (6.3-8.2) g/dL Albumin 3.0 L (3.5-5.0) g/dL 12/11/24 12/11/24 Range/Units 10:06 10:06 RBC 2.80 L (4.30-5.90) m/uL Hgb 8.6 L (13.0-17.5) gm/dL Hct 28.5 L (39.0-53.0) % MCV 101.7 H (80.0-100.0) fL MCHC 30.3 L (31.0-37.0) g/dL RDW 19.7 H (11.5-15.5) % Plt Count 29 L (150-450) k/uL Lymphocytes # 0.2 L (1.0-4.8) k/uL Sodium 133 L (137-145) mmol/L Chloride (98-107) mmol/L Carbon Dioxide (22-30) mmol/L BUN (9-20) mg/dL Creatinine 0.65 L (0.66-1.25) mg/dL Glucose 166 H (74-99) mg/dL Plasma Lactic Acid Jose Elias (0.7-2.0) mmol/L Calcium 8.0 L (8.4-10.2) mg/dL Magnesium (1.6-2.3) mg/dL AST (17-59) U/L Alkaline Phosphatase (38-126) U/L Total Protein (6.3-8.2) g/dL Albumin (3.5-5.0) g/dL Assessment and Plan Assessment: Mr. 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 He underwent a course of SBRT to 30 Gy in 5 fractions, completing treatment on 05/24/2023. He then developed emergence of a left lower lobe nodule with mediastinal adenopathy and underwent definitive chemoradiation to 60 Gy in 30 fractions, completing treatment on 11/29/2023. He developed metastatic disease in 04/2024. He presents with intractable back pain. He underwent palliative RT to the T-spine in 08/2024. He now presents with lower extremity weakness/falls. Plan: 1. Lower extremity weakness: No evidence of thoracic spinal cord compression. Awaiting results for MRI of the lumbar spine. There is no need for urgent radiotherapy. The patient's pain is reasonably controlled at this time. Uncertain if patient's weakness may be worsened by general debility. He appears cachectic. 2. Metastatic Non-small cell lung cancer: The patient believes his last cycle of chemotherapy was in early November. At that point, he was on carbo/taxol. Await input from medical oncology. Patient would likely need formal restaging, however there is some concern based on his CT of the thoracic spine that his pulmonary disease may be progressing. Time with Patient: Greater than 30
--- NOTE | 2024-12-11 17:52 | P.HPIM ---
History of Present Illness H&P Date: 12/11/24 This is a 69 year old male medical history of non small cell lung cancer has completed 10 rounds of radiation, and currently undergoing chemotherapy with last infusion on Saturday. Patient states for the last 2 weeks he has been experiencing left lower extremity weakness and parasthesias. In the last 24 hours he is now experiencing weakness in the right leg and states his legs are giving out and he has fallen multiple times. He continues to smoker, additional medical history of COPD, and known T4 and T1 lytic lesions. Patient has not had any fever or chills. He has not had any loss of bowel or bladder. No upper extremity weakness. He is not having any shortness of breath or chest pain. He is awake alert oriented. Thoracic lumbar spine CT on admit reveals T11 superior endplate compression with mild anterior height loss. No significant retropulsion. Similar lytic lesions/metastases involving the T1 vertebral body and left T4 transverse process. Similar fracture of the left T4 transverse pro cess/pathologic fracture. Degenerative changes of the lumbar spine, similar to prior. Most severe at L4-L5. Diffuse disc bulge and facet arthropathy with moderate canal stenosis. Severe right foraminal stenosis and moderate left foraminal stenosis. Severe emphysema and multiple lung nodules, partially visualized. some nodules are new since the prior/increased metastases. Increased size of the partially visualized right hepatic lobe lesion/metastases. Initial labs reveal white blood cell count 7.7, hgb 8.6, platelet count of 34, sodium 136, potassium 4.4, BUN 25, creatinine 0.80, lactic acid 2.9, AST 198, alk phos 177. Patient admitted with PT/OT consultation and consults to orthopedic spinal and radiation oncology. He was started on dexamethasone 4 mg 4 times daily. REVIEW OF SYSTEMS: CONSTITUTIONAL: No fever, no malaise, no fatigue. HEENT: No recent visual problems or hearing problems. Denied any sore throat. CARDIOVASCULAR: No chest pain, orthopnea, PND, no palpitations, no syncope. PULMONARY: No shortness of breath, no cough, no hemoptysis. GASTROINTESTINAL: No diarrhea, no nausea, no vomiting, no abdominal pain. NEUROLOGICAL: No headaches, no weakness, no numbness. HEMATOLOGICAL: Denies any bleeding or petechiae. GENITOURINARY: Denies any burning micturition, frequency, or urgency. MUSCULOSKELETAL/RHEUMATOLOGICAL: Denies any joint pain, swelling, or any muscle pain. ENDOCRINE: Denies any polyuria or polydipsia. The rest of the 14-point review of systems is negative. PHYSICAL EXAMINATION: GENERAL: The patient is alert and oriented x3, not in any acute distress. Well developed, well nourished. HEENT: Pupils are round and equally reacting to light. EOMI. No scleral icterus. No conjunctival pallor. Normocephalic, atraumatic. No pharyngeal erythema. No thyromegaly. CARDIOVASCULAR: S1 and S2 present. No murmurs, rubs, or gallops. PULMONARY: Chest is clear to auscultation, no wheezing or crackles. ABDOMEN: Soft, nontender, nondistended, normoactive bowel sounds. No palpable organomegaly. MUSCULOSKELETAL: No joint swelling or deformity. EXTREMITIES: No cyanosis, clubbing, or pedal edema. NEUROLOGICAL: Gross neurological examination did not reveal any focal deficits. SKIN: No rashes. Assessment and plan Intractible back pain Bilateral lower extremity weakness with paresthesias left greater than right likely from the new T11 compression fracture Generalized weakness and falls from above Fall with head trauma and patient has a well healing abrasion/bruising to the left eye Metastatic Non-small cell lung cancer with chemotherapy in November and has completed 10 rounds of radiation in August of last year New compression fracture of T11 History of COPD with no acute exacerbation Known T4 and T1 lytic lesions; metastasis to the adrenal gland and liver Subacute T4 left transverse process fracture per CT Chronic and ongoing nicotine use Lactic acidosis Hypomagnesemia Hypovolemic hyponatremia Macrocytic anemia with thrombocytopenia Mild protein calorie malnutrition GI prophylaxis Full Code Plan Med-oncology has been consulted as there appears to be disease progression on recent imaging Radiation oncology consult Orthopedic spinal consult and TLSO brace has been ordered Pending lumbar MRI Continue current pain regimen Continue IV decadron 4 mg QID Supplement magnesium pharmacological DVT prophylaxis held due to the thrombocytopenia Nicotine patch has been ordered Check B12 and folate level Continue normal saline at 75 mls/hr PT/OT consult Repeat labs The impression and plan of care has been dictated by Radha Arroyo, Nurse Practitioner as directed. Dr. Greta MD I have performed a history and physical examination and medical decision making of this patient, discussed the same with the dictator, and agree with the dictators assessment and plan as written, documented as a scribe. Based on total visit time, I have performed more than 50% of this visit. Past Medical History Past Medical History: Cancer, COPD, Osteoarthritis (OA) Additional Past Medical History / Comment(s): lung cancer, radiation and chemo, spinal CA History of Any Multi-Drug Resistant Organisms: None Reported Past Surgical History: Tonsillectomy Additional Past Surgical History / Comment(s): stent in aorta, stents in iliac artery, lobectomy right upper lung Past Psychological History: No Psychological Hx Reported Smoking Status: Current every day smoker - Past Family History Father History Unknown: Yes Family Medical History: Cancer Additional Family Medical History / Comment(s): Lung cancer. Medications and Allergies Home Medications Medication Instructions Recorded Confirmed Type Albuterol Sulfate [Albuterol 2 puff PO RT-QID PRN 11/19/24 12/11/24 History Sulfate Hfa] Morphine Sulfate ER [Ms Contin] 15 mg PO Q12HR 11/19/24 12/11/24 History Morphine Sulfate Ir [MSIR] 15 mg PO Q4H 11/19/24 12/11/24 History Sennosides-Docusate Sodium 1 tab PO BID 12/11/24 12/11/24 History [Senokot-S] Allergies Allergy/AdvReac Type Severity Reaction Status Date / Time No Known Allergies Allergy Verified 12/11/24 07:21 Physical Exam Vitals: Vital Signs Temp Pulse Pulse Resp BP BP Pulse Ox 12/11/24 07:58 97.6 F 105 H 16 104/64 93 L 12/11/24 07:41 97.6 F 105 H 16 104/64 93 L 12/11/24 06:40 94 17 88/63 92 L 12/11/24 03:06 93 17 89/58 92 L 12/11/24 01:45 93 17 85/59 95 12/10/24 23:27 101 H 17 83/55 12/10/24 21:27 105 H 18 92/62 12/10/24 21:19 98.4 F 72 18 92/62 94 L Intake and Output 12/10/24 12/11/24 12/11/24 22:59 06:59 14:59 Intake Total 240 Balance 240 Intake: Oral 240 Other: Weight 39.916 kg 42.5 kg Results CBC & Chem 7: 12/11/24 10:06 12/11/24 10:06 Labs: Abnormal Lab Results - Last 24 Hours (Table) 12/10/24 12/10/24 12/10/24 Range/Units 22:06 22:06 22:06 RBC 2.81 L (4.30-5.90) m/uL Hgb 8.6 L (13.0-17.5) gm/dL Hct 28.1 L (39.0-53.0) % MCV 100.2 H (80.0-100.0) fL MCHC 30.7 L (31.0-37.0) g/dL RDW 20.1 H (11.5-15.5) % Plt Count 34 L D (150-450) k/uL Lymphocytes # 0.3 L (1.0-4.8) k/uL Sodium 136 L (137-145) mmol/L Chloride 97 L (98-107) mmol/L Carbon Dioxide 32 H (22-30) mmol/L BUN 25 H (9-20) mg/dL Glucose 147 H (74-99) mg/dL Plasma Lactic Acid Jose Elias 2.9 H* (0.7-2.0) mmol/L Magnesium 1.2 L (1.6-2.3) mg/dL AST 198 H (17-59) U/L Alkaline Phosphatase 177 H (38-126) U/L Total Protein 5.5 L (6.3-8.2) g/dL Albumin 3.0 L (3.5-5.0) g/dL Assessment and Plan Time with Patient: Greater than 30
[2024-12-11] MEDS: SODIUM CHLORIDE 0.9% 500 ML 500 ML IV SCH (18:05)
[2024-12-11] MEDS ORDERED: HEPARIN SODIUM,PORCINE 5,000 UNIT/ML 1 ML VIAL SQ SCH (21:00)
--- NOTE | 2024-12-12 07:29 | P.PN ---
Progress Note - Text Progress Note Date: 12/12/24 MRI of the thoracic spine has been reviewed and demonstrates metastatic disease involving T1, T6 and T7. There is also acute/subacute compression fractures of T9 and 11. However, there is no significant spinal stenosis or cord compression. Of note, T9 and T11 did not appear pathologic. Patient is scheduled to complete an MRI of the Lumbar spine. Further recommendations to follow.
[2024-12-12 09:46] LABS: BUN/Creat Ratio 30.71 Ratio (12.00-20.00); Blood Urea Nitrogen 21.5 mg/dL (9.0-27.0); Calcium 8.2 mg/dL (8.7-10.3); Carbon Dioxide 27.9 mmol/L (21.6-31.8); Chloride 102 mmol/L (96-109); Glucose 206 mg/dL (70-110); Magnesium 1.9 mg/dL (1.5-2.4); Potassium 4.3 mmol/L (3.5-5.5); Sodium 137 mmol/L (135-145)
[2024-12-12 10:32] LABS: HCT 23.9 % (39.6-50.0); HGB 7.1 g/dL (13.0-17.0); Immature Platelet Fraction 14.9 % (1.1-6.1); MCH 30.3 pg (27.0-32.0); MCHC 29.7 g/dL (32.0-37.0); MCV 102.1 FL (80.0-97.0); Mean Platelet Volume 11.6 FL (9.5-12.2); NRBC Per 100 WBC 0 X 10*3/uL (0.00-0.01); Platelet Count 16 X 10*3/uL (140-440); RBC 2.34 X 10*6/uL (4.40-5.60); WBC 5.66 X 10*3/uL (4.50-10.00)
[2024-12-12 10:33] LABS: Basophils # (A) 0 X 10*3/uL (0.00-0.10); Basophils % (A) 0 %; Eosinophils # (A) 0.01 X 10*3/uL (0.04-0.35); Eosinophils % (A) 0.2 %; Lymphocytes # (A) 0.21 X 10*3/uL (0.90-5.00); Lymphocytes % (A) 3.7 %; Macrocytosis (M) 2+ (None Seen); Monocytes % (A) 1.8 %; Neutrophils # (A) 5.31 X 10*3/uL (1.80-7.70); Neutrophils % (A) 93.8 %
--- NOTE | 2024-12-12 13:10 | P.CONS ---
History of Present Illness - Reason for Consult Consult date: 12/12/24 Thrombocytopenia - Chief Complaint Weakness - History of Present Illness Mr. Blas is a 69-year-old gentleman with a past medical history significant for metastatic squamous cell carcinoma of the lung who received concurrent chemoradiotherapy followed by maintenance durvalumab and was noted to have progression in April 2024 with poor tolerance of subsequent carboplatin/gemcitabine of which he only received 1 cycle and started weekly carboplatin/paclitaxel on 10/29/2024 who presents with increased weakness. He received cycle 2 of weekly treatment on 12/07/2024 with missed weekly treatment appointments due to weakness and difficulties with transportation presenting with weakness and falls. He recently had a few falls landing on the lower back. He has needed assistance intermittently when rising from a seated position. He denies any bladder/bowel incontinence or saddle anesthesia. He did have CT thoracic and lumbar spine without contrast on 12/10/2024 noting new T11 superior endplate compression along with degenerative changes in the lumbar spine and similar lytic lesion/metastasis in the T1 vertebral body and T4 vertebral body with pathologic fracture in the transverse process of T4. Incidentally, he was noted to have multiple lung nodules, some of which may be new. MRI of the thoracic spine on 12/11/2024 noted new metastatic lesions at T1, T6, T7 that were not causing any significant spinal canal stenosis along with acute/subacute compression fractures at T9 and T11 and did not appear to have underlying mass to suggest pathologic fracture. He did have MRI of the lumbar spine performed on 12/11/2024, but could not be completed fully due to pain and we reattempted on 12/14/2024. Labs today revealed CBC with platelets 16, WBC 5.66, hemoglobin 7.1 (MCV 102.1). CMP on admission noted AST 198, alkaline phosphatase 177 with creatinine 0.8. In addition to extended release morphine 15 mg twice daily and immediate release morphine 15 mg every 4 hours as needed, he has been receiving dexamethasone 4 mg every 4 hours. He notes pain in the lower back that he attributes to falls in this region, but otherwise denies any uncontrolled pain. He has not had any constipation, but has not been having regular bowel movements. Review of Systems 14 point review of systems was conducted pertinent positives and negatives as noted per HPI Past Medical History Past Medical History: Cancer, COPD, Osteoarthritis (OA) Additional Past Medical History / Comment(s): lung cancer, radiation and chemo, spinal CA History of Any Multi-Drug Resistant Organisms: None Reported Past Surgical History: Tonsillectomy Additional Past Surgical History / Comment(s): stent in aorta, stents in iliac artery, lobectomy right upper lung Past Psychological History: No Psychological Hx Reported Smoking Status: Current every day smoker - Past Family History Father History Unknown: Yes Family Medical History: Cancer Additional Family Medical History / Comment(s): Lung cancer. Medications and Allergies Home Medications Medication Instructions Recorded Confirmed Type Albuterol Sulfate [Albuterol 2 puff PO RT-QID PRN 11/19/24 12/11/24 History Sulfate Hfa] Morphine Sulfate ER [Ms Contin] 15 mg PO Q12HR 11/19/24 12/11/24 History Morphine Sulfate Ir [MSIR] 15 mg PO Q4H 11/19/24 12/11/24 History Sennosides-Docusate Sodium 1 tab PO BID 12/11/24 12/11/24 History [Senokot-S] Allergies Allergy/AdvReac Type Severity Reaction Status Date / Time No Known Allergies Allergy Verified 12/11/24 07:21 Physical Exam Vitals: Vital Signs Temp Pulse Pulse Resp BP Pulse Ox 12/12/24 11:36 70 12/12/24 11:24 68 12/12/24 07:42 98.1 F 67 20 112/64 93 L 12/12/24 01:11 98.3 F 105 H 18 98/65 94 L 12/11/24 17:12 98.0 F 74 16 97/58 95 12/11/24 16:32 64 12/11/24 16:23 60 Intake and Output 12/11/24 12/12/24 12/12/24 22:59 06:59 14:59 Intake Total 2036 Output Total 450 Balance 2036 -450 Intake: Oral 2036 Output: Urine 450 Other: # Voids 4 0 - Constitutional General appearance: cooperative, no acute distress, thin - EENT Eyes: EOMI - Respiratory Respiratory: bilateral: wheezing (Inspiratory and expiratory wheezing heard in the bases bilaterally) - Cardiovascular Rhythm: regular - Gastrointestinal General gastrointestinal: no distended, soft, no tenderness - Integumentary Integumentary: pale - Neurologic Neurologic: CNII-XII intact Results CBC & Chem 7: 12/12/24 03:19 12/12/24 03:19 Labs: Abnormal Lab Results - Last 24 Hours (Table) 12/12/24 12/12/24 Range/Units 03:19 03:19 RBC 2.34 L (4.40-5.60) X 10*6/uL Hgb 7.1 L (13.0-17.0) g/dL Hct 23.9 L (39.6-50.0) % MCV 102.1 H (80.0-97.0) FL MCHC 29.7 L (32.0-37.0) g/dL RDW 20.0 H (11.5-14.5) % Plt Count 16 A* (140-440) X 10*3/uL Lymphocytes # 0.21 L (0.90-5.00) X 10*3/uL Monocytes # 0.10 L (0.20-1.00) X 10*3/uL Eosinophils # 0.01 L (0.04-0.35) X 10*3/uL Immature Plt Fraction 14.9 H (1.1-6.1) % Macrocytosis (manual) 2+ A (None Seen) BUN/Creatinine Ratio 30.71 H (12.00-20.00) Ratio Glucose 206 H (70-110) mg/dL Calcium 8.2 L (8.7-10.3) mg/dL Assessment and Plan (1) NSCLC metastatic to bone Current Visit: Yes Status: Acute Code(s): C34.90 - MALIGNANT NEOPLASM OF UNSP PART OF UNSP BRONCHUS OR LUNG; C79.51 - SECONDARY MALIGNANT NEOPLASM OF BONE SNOMED Code(s): 863293785 (2) Chemotherapy-induced thrombocytopenia Current Visit: Yes Status: Acute Code(s): D69.59 - OTHER SECONDARY THROMBOCYTOPENIA; T45.1X5A - ADVERSE EFFECT OF ANTINEOPLASTIC AND IMMUNOSUP DRUGS, INIT SNOMED Code(s): 749610707 (3) Antineoplastic chemotherapy induced anemia Current Visit: Yes Status: Acute Code(s): D64.81 - ANEMIA DUE TO ANTINEOPLASTIC CHEMOTHERAPY; T45.1X5A - ADVERSE EFFECT OF ANTINEOPLASTIC AND IMMUNOSUP DRUGS, INIT SNOMED Code(s): 340534662742608 Plan: #Metastatic non-small cell lung cancer -Initially presented with oligometastatic disease with left lower lobe and left adrenal gland pulmonary nodule -Initially completed radiation therapy to the left adrenal gland nodule in the follow-up 2022 -Subsequent PET/CT in September 2023 revealed new mediastinal lymphadenopathy wit h enlarging left lower lobe nodule -Completed concurrent chemoradiotherapy in November 2023 and received 6 cycles of durvalumab -PET/CT in April 2024 was concerning for new hepatic lobe lesion and left hilar lymphadenopathy -After initial liver biopsy was nondiagnostic, repeat liver biopsy on 06/03/2024 revealed metastatic squamous cell carcinoma -He received cycle 1 of carboplatin/gemcitabine on 07/01/2024 with poor tolerance due to grade 4 thrombocytopenia -He developed progression in the cervical spine causing pain in the upper back radiating down the arm with infiltration to the anterior epidural space encasement of the T1 peripheral nerve -He did receive palliative radiation therapy to this lesion, that did not provide significant relief -Cycle 1 of weekly carboplatin/paclitaxel was started on 10/29/2024 and received cycle 2 of treatment on 12/07/2024. He has had difficulty with transportation along with intermittent weakness -MRI of the thoracic spine on 12/11/2024 has noted new metastatic lesions at T6 and T7 that were not previously visualized, but are not causing cord compression -MRI of the lumbar spine was not well-tolerated due to discomfort -Clinically, he is having pain in the lower back that is controlled on his current pain regimen -We did discuss the findings on MRI of the thoracic spine and I did express my concern that he may not be benefiting from chemotherapy -We did have an extended discussion regarding this along with the progressive weakness he has been experiencing -He would like to attempt 1 more cycle of weekly treatment followed by staging CT scans -For now, we agreed to continue current medical management and await repeat MRI of the lumbar spine #Chemotherapy-induced thrombocytopenia, anemia -Hemoglobin noted to be 7.1 with platelets of 16 today -He is not having any evidence of bleeding at this time and is hemodynamically stable -From an oncology perspective, he does not require any transfusions currently -Vitamin B12, folic acid, thyroid profile ordered today Eneida Reddy MD Time with Patient: Greater than 30
--- NOTE | 2024-12-12 13:14 | P.PN ---
Subjective This is a 69 year old male medical history of non small cell lung cancer has completed 10 rounds of radiation, and currently undergoing chemotherapy with last infusion on Saturday. Patient states for the last 2 weeks he has been experiencing left lower extremity weakness and parasthesias. In the last 24 hours he is now experiencing weakness in the right leg and states his legs are giving out and he has fallen multiple times. He continues to smoker, additional medical history of COPD, and known T4 and T1 lytic lesions. Patient has not had any fever or chills. He has not had any loss of bowel or bladder. No upper extremity weakness. He is not having any shortness of breath or chest pain. He is awake alert oriented. Thoracic lumbar spine CT on admit reveals T11 superior endplate compression with mild anterior height loss. No significant retr opulsion. Similar lytic lesions/metastases involving the T1 vertebral body and left T4 transverse process. Similar fracture of the left T4 transverse process/pathologic fracture. Degenerative changes of the lumbar spine, similar to prior. Most severe at L4-L5. Diffuse disc bulge and facet arthropathy with moderate canal stenosis. Severe right foraminal stenosis and moderate left foraminal stenosis. Severe emphysema and multiple lung nodules, partially visualized. some nodules are new since the prior/increased metastases. Increased size of the partially visualized right hepatic lobe lesion/metastases. Initial labs reveal white blood cell count 7.7, hgb 8.6, platelet count of 34, sodium 136, potassium 4.4, BUN 25, creatinine 0.80, lactic acid 2.9, AST 198, alk phos 177. Patient admitted with PT/OT consultation and consults to orthopedic spinal and radiation oncology. He was started on dexamethasone 4 mg 4 times daily. 3/ Patient still complains from back pain but looks better controlled, currently is 2/10 at rest but gets worse if he moves around. Nevertheless patient looks comfortable and pleasant watching TV with family/friend at bedside No other pain or new complaint Patient seen in bed most of the time Platelet count dropped from 34 down to 16, hemoglobin down from 8.6-7.1, leukocyte count is normal. However there is no evidence of bleeding. Hematology/oncology consult was requested for this reason we will prefer to continue monitoring. However type and screen is requested in case of complication We will hold off on platelet blood transfusion for now Patient had thoracic MRI showing metastatic disease of T1, T6 and T7 vertebral body with no significant spinal stenosis and there is acute/subacute compression fracture of T9 and T11 Patient did not finish the whole part of the MRI, next part will be done on Saturday because it requires contrast and it would be too soon to do it today or tomorrow Review of systems CONSTITUTIONAL: No fever, no malaise, no fatigue. HEENT: No recent visual problems or hearing problems. Denied any sore throat. CARDIOVASCULAR: No orthopnea, PND, no palpitations, no syncope. PULMONARY: No shortness of breath, no cough, no hemoptysis. GASTROINTESTINAL: No diarrhea, no nausea, no vomiting, no abdominal pain. Normoactive bowel sounds. NEUROLOGICAL: No headaches, no weakness, no numbness. Active Medications Generic Name Dose Route Start Last Admin Trade Name Freq PRN Reason Stop Dose Admin Acetaminophen 650 mg 12/11/24 02:53 Acetaminophen Tab 325 Mg Tab PO Q6HR PRN Mild Pain or Fever > 100.5 Albuterol Sulfate 2.5 mg 12/11/24 09:54 12/12/24 11:24 Albuterol Nebulized 2.5 Mg/3 Ml INHALATION 2.5 mg RT-QID PRN Administration Shortness Of Breath Dexamethasone Sodium Phosphate 4 mg 12/11/24 10:00 12/12/24 09:09 Dexamethasone Sod Phosphate 4 Mg/Ml 1 Ml Vial IVP 4 mg Q4H JYOTI Administration Sodium Chloride 500 mls @ 75 mls/hr 12/11/24 18:00 12/12/24 09:15 Saline 0.9% IV 75 mls/hr .[id number] JYOTI Administration Miscellaneous Information 1 each 12/11/24 13:07 Magnesium Replacement Protocol 1 Each [facility] [place] MISCELLANE DAILY PRN Per Protocol Protocol Morphine Sulfate 15 mg 12/11/24 10:00 12/12/24 09:09 Morphine Sulfate Er 15 Mg Tablet PO 15 mg Q12HR JYOTI Administration Protocol Morphine Sulfate 15 mg 12/11/24 10:00 12/12/24 10:51 Morphine Sulfate Ir 15 Mg Tablet PO 15 mg Q4H JYOTI Administration Naloxone HCl 0.2 mg 12/11/24 02:53 Naloxone 0.4 Mg/Ml 1 Ml Vial IV Q2M PRN Opioid Reversal Nicotine 1 patch 12/11/24 14:45 12/12/24 09:09 Nicotine 14mg/24hr Patch TRANSDERM 1 patch DAILY JYOTI Administration Ondansetron HCl 4 mg 12/11/24 09:55 Ondansetron 4 Mg/2 Ml Vial IVP Q6HR PRN Nausea And Vomiting Pantoprazole Sodium 40 mg 12/11/24 10:00 12/12/24 09:09 Pantoprazole 40 Mg Tablet PO 40 mg AC-BRKFST JYOTI Administration Petrolatum 1 applic 12/11/24 10:00 12/12/24 09:10 Zinc Oxide Paste (Z-Guard) 1 Applic TOPICAL 1 applic BID JYOTI Administration Protocol Pregabalin 100 mg 12/11/24 10:00 12/12/24 09:09 Pregabalin 100 Mg Cap PO 100 mg BID JYOTI Administration Senna/Docusate Sodium 1 each 12/11/24 10:00 12/12/24 09:09 Sennosides-Docusate Sodium 1 Each Tab PO 1 each BID JYOTI Administration Objective - Vital Signs Vital signs: Vital Signs Temp 98.1 F 12/12/24 07:42 Pulse 70 12/12/24 11:36 Resp 20 12/12/24 07:42 BP 112/64 12/12/24 07:42 Pulse Ox 93 L 12/12/24 07:42 FiO2 Intake & Output 12/11/24 12/12/24 12/12/24 18:59 06:59 18:59 Intake Total 4135 Output Total 800 450 Balance 3335 -450 Weight 42.5 kg Intake: Oral 4135 Output: Urine 800 450 Other: Voiding Method Diaper Incontinent # Voids 4 0 - Exam -GENERAL: The patient is alert and oriented x3, not in any acute distress. Well developed, well nourished. Cachectic HEENT: Pupils are round and equally reacting to light. EOMI. No scleral icterus. No conjunctival pallor. Normocephalic, atraumatic. No pharyngeal erythema. No thyromegaly. CARDIOVASCULAR: S1 and S2 present. No murmurs, rubs, or gallops. PULMONARY: Chest is clear to auscultation, no wheezing , no crackles. ABDOMEN: Soft, nontender, nondistended, normoactive bowel sounds. No palpable organomegaly. -MUSCULOSKELETAL: No joint swelling or deformity. Mild back tenderness EXTREMITIES: No cyanosis, clubbing, or pedal edema. NEUROLOGICAL: Gross neurological examination did not reveal any focal deficits. SKIN: No rashes. no petechiae. - Labs CBC & Chem 7: 12/12/24 03:19 12/12/24 03:19 Labs: Abnormal Lab Results - Last 24 Hours (Table) 12/12/24 12/12/24 Range/Units 03:19 03:19 RBC 2.34 L (4.40-5.60) X 10*6/uL Hgb 7.1 L (13.0-17.0) g/dL Hct 23.9 L (39.6-50.0) % MCV 102.1 H (80.0-97.0) FL MCHC 29.7 L (32.0-37.0) g/dL RDW 20.0 H (11.5-14.5) % Plt Count 16 A* (140-440) X 10*3/uL Lymphocytes # 0.21 L (0.90-5.00) X 10*3/uL Monocytes # 0.10 L (0.20-1.00) X 10*3/uL Eosinophils # 0.01 L (0.04-0.35) X 10*3/uL Immature Plt Fraction 14.9 H (1.1-6.1) % Macrocytosis (manual) 2+ A (None Seen) BUN/Creatinine Ratio 30.71 H (12.00-20.00) Ratio Glucose 206 H (70-110) mg/dL Calcium 8.2 L (8.7-10.3) mg/dL Assessment and Plan Assessment: Intractible back pain Bilateral lower extremity weakness with paresthesias left greater than right likely from the new T11 compression fracture - thoracic MRI showing metastatic disease of T1, T6 and T7 vertebral body with no significant spinal stenosis and there is acute/subacute compression fracture of T9 and T11 Generalized weakness and falls from above Fall with head trauma and patient has a well healing abrasion/bruising to the left eye Metastatic Non-small cell lung cancer with chemotherapy in November and has completed 10 rounds of radiation in August of last year New compression fracture of T11 History of COPD with no acute exacerbation Known T4 and T1 lytic lesions; metastasis to the adrenal gland and liver Subacute T4 left transverse process fracture per CT Chronic and ongoing nicotine use Lactic acidosis Hypomagnesemia Hypovolemic hyponatremia Macrocytic anemia with thrombocytopenia Mild protein calorie malnutrition Plan: Continue with dexamethasone Continue with normal saline Orthopedic consult following the patient closely Pain management MRI of the thoracic spine is reviewed, pending rest of MRI which could be done on Saturday as it requires contrast Hematoma/oncology consult Monitor platelet count and hemoglobin closely Labs and medication were reviewed.. Continue same treatment. Continue with symptomatic treatment. Resume home medication. Monitor labs and vitals. DVT and GI prophylaxis. Further recommendations as per clinical course of the patient DVT prophylaxis: no Subcutaneous heparin for severe thrombocytopenia GI Prophylaxis: Ppi PT/OT: Pending Prognosis is guarded
[2024-12-12] MEDS: LORazepam 0.5 MG TAB PO PRN (17:46)
--- NOTE | 2024-12-13 15:32 | P.PN ---
Subjective This is a 69 year old male medical history of non small cell lung cancer has completed 10 rounds of radiation, and currently undergoing chemotherapy with last infusion on Saturday. Patient states for the last 2 weeks he has been experiencing left lower extremity weakness and parasthesias. In the last 24 hours he is now experiencing weakness in the right leg and states his legs are giving out and he has fallen multiple times. He continues to smoker, additional medical history of COPD, and known T4 and T1 lytic lesions. Patient has not had any fever or chills. He has not had any loss of bowel or bladder. No upper extremity weakness. He is not having any shortness of breath or chest pain. He is awake alert oriented. Thoracic lumbar spine CT on admit reveals T11 superior endplate compression with mild anterior height loss. No significant retr opulsion. Similar lytic lesions/metastases involving the T1 vertebral body and left T4 transverse process. Similar fracture of the left T4 transverse process/pathologic fracture. Degenerative changes of the lumbar spine, similar to prior. Most severe at L4-L5. Diffuse disc bulge and facet arthropathy with moderate canal stenosis. Severe right foraminal stenosis and moderate left foraminal stenosis. Severe emphysema and multiple lung nodules, partially visualized. some nodules are new since the prior/increased metastases. Increased size of the partially visualized right hepatic lobe lesion/metastases. Initial labs reveal white blood cell count 7.7, hgb 8.6, platelet count of 34, sodium 136, potassium 4.4, BUN 25, creatinine 0.80, lactic acid 2.9, AST 198, alk phos 177. Patient admitted with PT/OT consultation and consults to orthopedic spinal and radiation oncology. He was started on dexamethasone 4 mg 4 times daily. 3/ Patient still complains from back pain but looks better controlled, currently is 2/10 at rest but gets worse if he moves around. Nevertheless patient looks comfortable and pleasant watching TV with family/friend at bedside No other pain or new complaint Patient seen in bed most of the time Platelet count dropped from 34 down to 16, hemoglobin down from 8.6-7.1, leukocyte count is normal. However there is no evidence of bleeding. Hematology/oncology consult was requested for this reason we will prefer to continue monitoring. However type and screen is requested in case of complication We will hold off on platelet blood transfusion for now Patient had thoracic MRI showing metastatic disease of T1, T6 and T7 vertebral body with no significant spinal stenosis and there is acute/subacute compression fracture of T9 and T11 Patient did not finish the whole part of the MRI, next part will be done on Saturday because it requires contrast and it would be too soon to do it today or tomorrow 12/13 Patient is awake alert sitting in bed He seems little congested however he is not significantly tachypneic and he is continued on room air He has low appetite except for Ensure He is kept on normal sinus 75 mL/h and but because of the increased swelling especially in the legs we will give one-time dose of Lasix and lower the rate to 40 to 50 mL/h Tomorrow patient planned for the other part of the MRI of the cervical spine and lumbar spine B12 and thyroid function were acceptable folate is on the low normal side, replacement started with folic acid Check labs in the morning. Discussed with staff Review of systems CONSTITUTIONAL: No fever, no malaise, no fatigue. HEENT: No recent visual problems or hearing problems. Denied any sore throat. CARDIOVASCULAR: No orthopnea, PND, no palpitations, no syncope. PULMONARY: No shortness of breath, no cough, no hemoptysis. GASTROINTESTINAL: No diarrhea, no nausea, no vomiting, no abdominal pain. Normoactive bowel sounds. NEUROLOGICAL: No headaches, no weakness, no numbness. Active Medications Generic Name Dose Route Start Last Admin Trade Name Isaelq PRN Reason Stop Dose Admin Acetaminophen 650 mg 12/11/24 02:53 Acetaminophen Tab 325 Mg Tab PO Q6HR PRN Mild Pain or Fever > 100.5 Albuterol Sulfate 2.5 mg 12/11/24 09:54 12/13/24 11:13 Albuterol Nebulized 2.5 Mg/3 Ml INHALATION 2.5 mg RT-QID PRN Administration Shortness Of Breath Dexamethasone Sodium Phosphate 4 mg 12/11/24 10:00 12/13/24 14:00 Dexamethasone Sod Phosphate 4 Mg/Ml 1 Ml Vial IVP 4 mg Q4H JYOTI Administration Folic Acid 1 mg 12/13/24 15:30 Folic Acid 1 Mg Tab PO DAILY JYOTI Furosemide 20 mg 12/13/24 15:20 Furosemide 10 Mg/Ml 2 Ml Vial IV 12/13/24 15:21 ONCE ONE Sodium Chloride 500 mls @ 40 mls/hr 12/11/24 18:00 12/13/24 10:39 Saline 0.9% IV 75 mls/hr .[id number] JYOTI Administration Lorazepam 0.25 mg 12/12/24 17:18 12/12/24 17:46 Lorazepam 0.5 Mg Tab PO 0.25 mg BID PRN Administration Anxiety Miscellaneous Information 1 each 12/11/24 13:07 Magnesium Replacement Protocol 1 Each Misc MISCELLANE DAILY PRN Per Protocol Protocol Morphine Sulfate 15 mg 12/11/24 10:00 12/13/24 08:05 Morphine Sulfate Er 15 Mg Tablet PO 15 mg Q12HR JYOTI Administration Protocol Morphine Sulfate 15 mg 12/11/24 10:00 12/13/24 14:01 Morphine Sulfate Ir 15 Mg Tablet PO 15 mg Q4H JYOTI Administration Naloxone HCl 0.2 mg 12/11/24 02:53 Naloxone 0.4 Mg/Ml 1 Ml Vial IV Q2M PRN Opioid Reversal Nicotine 1 patch 12/11/24 14:45 12/13/24 08:06 Nicotine 14mg/24hr Patch TRANSDERM 1 patch DAILY JYOTI Administration Ondansetron HCl 4 mg 12/11/24 09:55 Ondansetron 4 Mg/2 Ml Vial IVP Q6HR PRN Nausea And Vomiting Pantoprazole Sodium 40 mg 12/11/24 10:00 12/13/24 08:06 Pantoprazole 40 Mg Tablet PO 40 mg AC-BRKFST JYOTI Administration Petrolatum 1 applic 12/11/24 10:00 12/13/24 08:06 Zinc Oxide Paste (Z-Guard) 1 Applic TOPICAL 1 applic BID JYOTI Administration Protocol Pregabalin 100 mg 12/11/24 10:00 12/13/24 08:04 Pregabalin 100 Mg Cap PO 100 mg BID JYOTI Administration Senna/Docusate Sodium 1 each 12/11/24 10:00 12/13/24 08:06 Sennosides-Docusate Sodium 1 Each Tab PO 1 each BID JYOTI Administration Objective - Vital Signs Vital signs: Vital Signs Temp 97.7 F 12/13/24 13:39 Pulse 89 12/13/24 13:39 Resp 16 12/13/24 13:39 BP 100/65 12/13/24 13:39 Pulse Ox 98 12/13/24 13:39 FiO2 Intake & Output 12/12/24 12/13/24 12/13/24 17:59 06:59 18:59 Intake Total Output Total Balance Intake: Intake, IV Titration Amount Sodium Chloride 0.9% 500 ml 500 ml @ 75 mls/hr IV .Q6H40M [facility] Rx#:[id number] Oral Output: Urine Other: Voiding Method - Exam -GENERAL: The patient is alert and oriented x3, not in any acute distress. Well developed, well nourished. Cachectic HEENT: Pupils are round and equally reacting to light. EOMI. No scleral icterus. No conjunctival pallor. Normocephalic, atraumatic. No pharyngeal erythema. No thyromegaly. CARDIOVASCULAR: S1 and S2 present. No murmurs, rubs, or gallops. PULMONARY: Chest is clear to auscultation, no wheezing , no crackles. ABDOMEN: Soft, nontender, nondistended, normoactive bowel sounds. No palpable organomegaly. -MUSCULOSKELETAL: No joint swelling or deformity. Mild back tenderness EXTREMITIES: No cyanosis, clubbing, or pedal edema. NEUROLOGICAL: Gross neurological examination did not reveal any focal deficits. SKIN: No rashes. no petechiae. - Labs CBC & Chem 7: 12/12/24 03:19 12/12/24 03:19 Assessment and Plan Assessment: Intractible back pain Bilateral lower extremity weakness with paresthesias left greater than right likely from the new T11 compression fracture - thoracic MRI showing metastatic disease of T1, T6 and T7 vertebral body with no significant spinal stenosis and there is acute/subacute compression fracture of T9 and T11 Generalized weakness and falls from above Fall with head trauma and patient has a well healing abrasion/bruising to the left eye Metastatic Non-small cell lung cancer with chemotherapy in November and has com pleted 10 rounds of radiation in August of last year New compression fracture of T11 History of COPD with no acute exacerbation Known T4 and T1 lytic lesions; metastasis to the adrenal gland and liver Subacute T4 left transverse process fracture per CT Chronic and ongoing nicotine use Lactic acidosis Hypomagnesemia Hypovolemic hyponatremia Macrocytic anemia with thrombocytopenia Mild protein calorie malnutrition Plan: Continue with dexamethasone, this can be switched to oral dose Continue with normal saline Orthopedic consult following the patient closely Pain management MRI of the thoracic spine is reviewed, pending rest of MRI of the cervical and lumbar spine which could be done on Saturday as it requires contrast Hematoma/oncology consult replace folate Monitor platelet count and hemoglobin closely Labs and medication were reviewed.. Continue same treatment. Continue with symptomatic treatment. Resume home medication. Monitor labs and vitals. DVT and GI prophylaxis. Further recommendations as per clinical course of the patient DVT prophylaxis: no Subcutaneous heparin for severe thrombocytopenia GI Prophylaxis: Ppi PT/OT: Pending Prognosis is guarded
[2024-12-13] MEDS: FUROSEMIDE 10 MG/ML 2 ML VIAL IV ONE (16:26)
[2024-12-13] MEDS: FOLIC ACID 1 MG TAB PO SCH (16:28)
[2024-12-13] MEDS ORDERED: HYDROmorphone 0.5 MG/0.5 ML SYRINGE IVP PRN (18:59)
[2024-12-13] MEDS: TAMSULOSIN 0.4 MG CAP.ER.24H PO STA (19:07)
[2024-12-14 08:38] LABS: BUN/Creat Ratio 42.38 Ratio (12.00-20.00); Blood Urea Nitrogen 33.9 mg/dL (9.0-27.0); Calcium 8.6 mg/dL (8.7-10.3); Carbon Dioxide 25.2 mmol/L (21.6-31.8); Chloride 100 mmol/L (96-109); Glucose 176 mg/dL (70-110); Potassium 4.9 mmol/L (3.5-5.5); Sodium 136 mmol/L (135-145)
[2024-12-14] MEDS: polyethylene glycoL 3350 17 GM POWD.PACK PO SCH (08:41)
[2024-12-14] MEDS: TAMSULOSIN 0.4 MG CAP.ER.24H PO SCH (08:41)
[2024-12-14 10:07] LABS: HCT 21.8 % (39.6-50.0); HGB 6.7 g/dL (13.0-17.0); Immature Platelet Fraction 24.7 % (1.1-6.1); MCH 31.3 pg (27.0-32.0); MCHC 30.7 g/dL (32.0-37.0); MCV 101.9 FL (80.0-97.0); NRBC Per 100 WBC 0.04 X 10*3/uL (0.00-0.01); Platelet Count 4 X 10*3/uL (140-440); RBC 2.14 X 10*6/uL (4.40-5.60); RDW 19.8 % (11.5-14.5); WBC 4.47 X 10*3/uL (4.50-10.00)
[2024-12-14 10:08] LABS: Basophils # (A) 0.01 X 10*3/uL (0.00-0.10); Basophils % (A) 0.2 %; Eosinophils # (A) 0 X 10*3/uL (0.04-0.35); Eosinophils % (A) 0 %; Lymphocytes # (A) 0.18 X 10*3/uL (0.90-5.00); Macrocytosis (M) 2+ (None Seen); Monocytes # (A) 0.18 X 10*3/uL (0.20-1.00); Neutrophils # (A) 4.07 X 10*3/uL (1.80-7.70); Neutrophils % (A) 91.1 %
--- NOTE | 2024-12-14 12:30 | P.PN ---
Progress Note - Text Progress Note Date: 12/14/24 This is a 69 year old male medical history of non small cell lung cancer has completed 10 rounds of radiation, and currently undergoing chemotherapy with last infusion on Saturday. Patient states for the last 2 weeks he has been experiencing left lower extremity weakness and parasthesias. In the last 24 hours he is now experiencing weakness in the right leg and states his legs are giving out and he has fallen multiple times. He continues to smoker, additional medical history of COPD, and known T4 and T1 lytic lesions. Patient has not had any fever or chills. He has not had any loss of bowel or bladder. No upper extremity weakness. He is not having any shortness of breath or chest pain. He is awake alert oriented. Thoracic lumbar spine CT on admit reveals T11 superior endplate compression with mild anterior height loss. No significant retropulsion. Similar lytic lesions/metastases involving the T1 vertebral body and left T4 transverse process. Similar fracture of the left T4 transverse process/pathologic fracture. Degenerative changes of the lumbar spine, similar to prior. Most severe at L4-L5. Diffuse disc bulge and facet arthropathy with moderate canal stenosis. Severe right foraminal stenosis and moderate left foraminal stenosis. Severe emphysema and multiple lung nodules, partially visualized. some nodules are new since the prior/increased metastases. Increased size of the partially visualized right hepatic lobe lesion/metastases. Initial labs reveal white blood cell count 7.7, hgb 8.6, platelet count of 34, sodium 136, potassium 4.4, BUN 25, creatinine 0.80, lactic acid 2.9, AST 198, alk phos 177. Patient admitted with PT/OT consultation and consults to orthopedic spinal and radiation oncology. He was started on dexamethasone 4 mg 4 times daily. 3 Patient still complains from back pain but looks better controlled, currently is 2/10 at rest but gets worse if he moves around. Nevertheless patient looks comfortable and pleasant watching TV with family/friend at bedside No other pain or new complaint Patient seen in bed most of the time Platelet count dropped from 34 down to 16, hemoglobin down from 8.6-7.1, leukocyte count is normal. However there is no evidence of bleeding. Hematology/oncology consult was requested for this reason we will prefer to c ontinue monitoring. However type and screen is requested in case of complication We will hold off on platelet blood transfusion for now Patient had thoracic MRI showing metastatic disease of T1, T6 and T7 vertebral body with no significant spinal stenosis and there is acute/subacute compression fracture of T9 and T11 Patient did not finish the whole part of the MRI, next part will be done on because it requires contrast and it would be too soon to do it today or tomorrow 12/13 Patient is awake alert sitting in bed He seems little congested however he is not significantly tachypneic and he is continued on room air He has low appetite except for Ensure He is kept on normal sinus 75 mL/h and but because of the increased swelling especially in the legs we will give one-time dose of Lasix and lower the rate to 40 to 50 mL/h Tomorrow patient planned for the other part of the MRI of the cervical spine and lumbar spine B12 and thyroid function were acceptable folate is on the low normal side, replacement started with folic acid Check labs in the morning. Discussed with staff December 14: Reclining bed. Oral intake about 25%. r. Some pain present. Pending MRI lumbar spine this afternoon. Spoke to Tia DOSHI from oncology. Further treatment from the standpoint follow-up outpatient. Had a BM yesterday. Active Medications Acetaminophen (Acetaminophen Tab 325 Mg Tab) 650 mg PO Q6HR PRN PRN Reason: Mild Pain or Fever > 100.5 Albuterol Sulfate (Albuterol Nebulized 2.5 Mg/3 Ml) 2.5 mg INHALATION RT-QID PRN PRN Reason: Shortness Of Breath Last Admin: 12/14/24 05:04 Dose: 2.5 mg Dexamethasone Sodium Phosphate (Dexamethasone Sod Phosphate 4 Mg/Ml 1 Ml Vial) 4 mg IVP Q4H JYOTI Last Admin: 12/14/24 12:03 Dose: 4 mg Folic Acid (Folic Acid 1 Mg Tab) 1 mg PO DAILY JYOTI Last Admin: 12/14/24 08:41 Dose: 1 mg Sodium Chloride (Saline 0.9%) 500 mls @ 40 mls/hr IV .[id number] JYOTI Last Admin: 12/14/24 06:29 Dose: 40 mls/hr Lorazepam (Lorazepam 0.5 Mg Tab) 0.25 mg PO BID PRN PRN Reason: Anxiety Last Admin: 12/12/24 17:46 Dose: 0.25 mg Miscellaneous Information (Magnesium Replacement Protocol 1 Each Misc) 1 each MISCELLANE DAILY PRN; Protocol PRN Reason: Per Protocol Morphine Sulfate (Morphine Sulfate Er 15 Mg Tablet) 15 mg PO Q12HR [facility]; Protocol Last Admin: 12/14/24 08:47 Dose: 15 mg Morphine Sulfate (Morphine Sulfate Ir 15 Mg Tablet) 15 mg PO Q4H [facility] Last Admin: 12/14/24 12:03 Dose: Not Given Naloxone HCl (Naloxone 0.4 Mg/Ml 1 Ml Vial) 0.2 mg IV Q2M PRN PRN Reason: Opioid Reversal Nicotine (Nicotine 14mg/24hr Patch) 1 patch TRANSDERM DAILY [facility] Last Admin: 12/14/24 08:40 Dose: 1 patch Ondansetron HCl (Ondansetron 4 Mg/2 Ml Vial) 4 mg IVP Q6HR PRN PRN Reason: Nausea And Vomiting Pantoprazole Sodium (Pantoprazole 40 Mg Tablet) 40 mg PO AC-BRKFST [facility] Last Admin: 12/14/24 06:04 Dose: 40 mg Petrolatum (Zinc Oxide Paste (Z-Guard) 1 Applic) 1 applic TOPICAL BID [facility]; Protocol Last Admin: 12/14/24 08:41 Dose: 1 applic Polyethylene Glycol (Polyethylene Glycol 3350 17 Gm Powd.Pack) 17 gm PO DAILY [facility] Last Admin: 12/14/24 08:41 Dose: 17 gm Pregabalin (Pregabalin 100 Mg Cap) 100 mg PO BID [facility] Last Admin: 12/14/24 08:40 Dose: 100 mg Senna/Docusate Sodium (Sennosides-Docusate Sodium 1 Each Tab) 1 each PO BID [facility] Last Admin: 12/14/24 08:41 Dose: 1 each Tamsulosin HCl (Tamsulosin 0.4 Mg Cap.Er.24h) 0.4 mg PO -BRKFST [facility] Last Admin: 12/14/24 08:41 Dose: 0.4 mg Physical examination: VITAL SIGNS: 97.6, 115, 16, 94 x 56, 92% on 2 L GENERAL: BMI 15.6, thin built,. Comfortable EYES: Pupils equal. Conjunctiva neil l. HEENT: External appearance of nose and ears normal, oral cavity grossly normal. NECK: JVD not raised; masses not palpable. HEART: First and second heart sounds are normal; no edema. LUNGS: Respiratory rate normal diminished breath sounds. ABDOMEN: Soft, nontender, liver spleen not palpable, no masses palpable. PSYCH: Alert and oriented x3; mood and affect neil l. MUSCULOSKELETAL:No Clubbing/cyanosis;muscles-grossly intact. 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 Loss of muscle mass subcutaneous fat NEUROLOGICAL: Cranial nerves grossly intact; no facial asymmetry, power and sensation grossly intact. INVESTIGATIONS, reviewed in the clinical context: December 14: White count 4.4 hemoglobin 6.7 platelets 4 sodium 136 potassium 4.9 creatinine 0.8 glucose 176 B12 838 folate 6.6 TSH 1.1 Thoracic spine MRI: Metastatic disease T1 T6-T7. Acute/subacute compression fracture of T9 T11 vertebral bodies with 25% loss of significant retropulsion. Assessment and plan: Intractible back pain Bilateral lower extremity weakness with paresthesias left greater than right likely from the new T11 compression fracture - thoracic MRI showing metastatic disease of T1, T6 and T7 vertebral body with no significant spinal stenosis and there is acute/subacute compression fracture of T9 and T11 Generalized weakness and falls from above Fall with head trauma and patient has a well healing abrasion/bruising to the left eye Metastatic Non-small cell lung cancer with chemotherapy in November2023 and has completed 10 rounds of radiation in August of last year. Concern from oncology about chemotherapy not working New compression fracture of T9 and T11.-Pending lumbar spine MRI. TLSO brace delivered on December 11, 2024. 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 Continue current medication treatment plan. CBC being followed by oncology. Further outpatient follow-up.
--- NOTE | 2024-12-14 12:49 | P.PN ---
Subjective Progress Note Date: 12/14/24 Principal diagnosis: back pain, Bilateral lower extremity paresthesia Patient seen and examined this morning. Patient is resting comfortably in bed. He currently denies any back pain. He is denying any numbness or tingling to his lower extremities at this time. Patient states that he has not been up since his admission so he is unsure if his left lower extremity would continue to give out on him. Informed patient that we are waiting on his MRI results of the Cervical and Lumbar spine. Patient verbalizes understanding. Further recommendations are pending. Objective - Vital Signs Vital signs: Vital Signs Temp 97.4 F L 12/14/24 01:21 Pulse 87 12/14/24 05:17 Resp 16 12/14/24 01:21 BP 103/64 12/14/24 01:21 Pulse Ox 99 12/14/24 01:21 FiO2 Intake & Output 12/13/24 12/14/24 12/14/24 18:59 06:59 18:59 Intake Total 590 Output Total 800 600 Balance -800 -10 Intake: Oral 590 Output: Urine 800 600 Straight 800 450 - Exam General: The patient is awake and alert, in no acute distress Skin: Skin is warm and dry. There is abrasions and ecchymosis to the left eye. Neck: The neck is supple, there is no tenderness and ROM intact. Cardiovascular: There is a regular rate and rhythm. Respiratory: Respirations are non-labored. Gastrointestinal: Soft, non-distended, non-tender abdomen. Back: There is no tenderness to palpation in the midline, paralumbar, parathoracic or buttocks region. There is no obvious deformity. Musculoskeletal: ROM limited secondary to pain. Right: shoulder abduction 5/5, elbow flexors 5/5, wrist dorsiflexors 5/5. finger abductor 5/5, pulmonology physician 5/5, hip flexor 4/5, knee flexor 4/5, ankle dorsiflexor 4/5, ankle plantarflexion 4/5 and extensor hallucis 4/5. Left: shoulder abduction 5/5, elbow flexors 5/5, wrist dorsiflexors 5/5. finger abductor 5/5, pulmonology physician 5/5, hip flexor 4-/5, knee flexor 4/5, ankle dorsiflexor 3- /5, ankle plantarflexion 4/5 and extensor hallucis 3-/5. Neurological: CN 2-12 intact. There are no obvious motor or sensory deficits. Movement and coordination equal and intact. Sensory exam to light touch intact C5-T1 and intact from L2-S1. Reflexes 2/4 in bilateral upper and lower extremities. Negative Hoffmans, babinski, and clonus signs. Psychiatric: Cooperative, appropriate mood & affect, normal judgment. - Labs CBC & Chem 7: 12/14/24 04:09 12/14/24 04:09 Assessment and Plan Assessment: Metastatic lesions T1, T6, T7 Subacute T4 left transverse process fracture Acute/Subacute T9 and T11 vertebral compression fracture Bilateral lower extremity paresthesia Bilateral lower extremity weakness, L>R Multiple medical comorbidities Plan: At this time we have ordered an MRI of the Cervical and Lumbar spine with and without contrast for further evaluation. 2. Appreciate medical management 3. Pain management - Continue with current regimen, IV decadron will be weaned. 4. PT/OT - weightbearing as tolerated with a walker. 5. Appreciate consult. I reviewed and discussed this case with my attending Dr. Chang, whom has reviewed this chart and films and is in agreement with assessment and plan of care as outlined above. I have personally seen and examined the patient, performed the documentation and the assessment and plan as written. Number of minutes spent on the visit: 30m.
--- NOTE | 2024-12-14 16:11 | P.PN ---
Subjective Progress Note Date: 12/14/24 Principal diagnosis: weakness, falls Patient reporting no back pain today. Has not requested pain medication today. Still feeling fatigued/weak, however hemoglobin found to be 6.7 today; Plt 4. He has been given 1 unit of blood and now platelets as well. Objective - Vital Signs Vital signs: Vital Signs Temp 97.8 F 12/14/24 15:14 Pulse 94 12/14/24 15:14 Resp 16 12/14/24 15:14 BP 111/82 12/14/24 15:14 Pulse Ox 90 L 12/14/24 14:36 FiO2 Intake & Output 12/13/24 12/14/24 12/14/24 18:59 06:59 18:59 Intake Total 590 310 Output Total 800 600 Balance -800 -10 310 Intake: Oral 590 Blood Product 310 Platelet Pheresis Pas 0 Psoralen Unit [id number] Rc Irr As1 Unit 310 [id number] Output: Urine 800 600 Straight 800 450 Other: Voiding Method Indwelling Catheter - Constitutional General appearance: Present: no acute distress, thin - EENT Eyes: Present: EOMI, PERRLA ENT: Present: hearing grossly normal - Neck Neck: Absent: lymphadenopathy - Respiratory Respiratory: bilateral: CTA - Cardiovascular Rhythm: regular - Gastrointestinal General gastrointestinal: Absent: tenderness - Integumentary Integumentary: Present: pale - Neurologic Neurologic: Present: CNII-XII intact - Psychiatric Psychiatric: Present: A&O x's 3 - Labs CBC & Chem 7: 12/14/24 04:09 12/14/24 04:09 Labs: Abnormal Lab Results - Last 24 Hours (Table) 12/12/24 12/14/24 12/14/24 Range/Units 11:50 04:09 04:09 WBC 4.47 L (4.50-10.00) X 10*3/uL RBC 2.14 L (4.40-5.60) X 10*6/uL Hgb 6.7 A* (13.0-17.0) g/dL Hct 21.8 L (39.6-50.0) % MCV 101.9 H (80.0-97.0) FL MCHC 30.7 L (32.0-37.0) g/dL RDW 19.8 H (11.5-14.5) % Plt Count 4 A* (140-440) X 10*3/uL Lymphocytes # 0.18 L (0.90-5.00) X 10*3/uL Monocytes # 0.18 L (0.20-1.00) X 10*3/uL Eosinophils # 0 L (0.04-0.35) X 10*3/uL NRBC/100 WBC Diff 0.04 H (0.00-0.01) X 10*3/uL Immature Plt Fraction 24.7 H (1.1-6.1) % Macrocytosis (manual) 2+ A (None Seen) BUN 33.9 H (9.0-27.0) mg/dL BUN/Creatinine Ratio 42.38 H (12.00-20.00) Ratio Glucose 176 H (70-110) mg/dL Calcium 8.6 L (8.7-10.3) mg/dL Crossmatch See Detail Assessment and Plan Assessment: 69 year old male with metastatic non-small cell lung cancer; admitted with we akness, falls and low back pain. Plan: 1. Weakness - Likely multifactorial - patient found to be anemic today. Currently receiving transfusion for Hemoglobin + platelets. 2. Lower back pain - Per nursing patient has not complained of pain. Still awaiting MRI L-spine results. However, no urgent need for RT based on current evaluation. Will continue to follow. 3. Metastatic NSCLC - Patient having difficulty tolerating chemotherapy. He is still hoping to try additional treatments, however he will need to recover adequately. Time with Patient: Less than 30
[2024-12-14] MEDS: DEXAMETHASONE SOD PHOSPHATE 4 MG/ML 1 ML VIAL IVP SCH (17:53)
[2024-12-14] MEDS: FUROSEMIDE 10 MG/ML 2 ML VIAL IV STA (18:16)
[2024-12-14 19:57] VITALS: TEMP 97.9
--- NOTE | 2024-12-14 21:02 | P.PN ---
Subjective Progress Note Date: 12/14/24 Principal diagnosis: Fall, fracture. Metastatic NSCLC In f/u today pt is pending MRI of L spine. He denies fever, N, chest pain or SOB, back pain is adequately controlled but, he is not moving around a lot at this time. Objective - Vital Signs Vital signs: Vital Signs Temp 97.7 F 12/14/24 14:36 Pulse 105 H 12/14/24 14:36 Resp 16 12/14/24 14:36 BP 96/54 12/14/24 14:36 Pulse Ox 90 L 12/14/24 14:36 FiO2 Intake & Output 12/13/24 12/14/24 12/14/24 18:59 06:59 18:59 Intake Total 590 310 Output Total 800 600 Balance -800 -10 310 Intake: Oral 590 Blood Product 310 Platelet Pheresis Pas 0 Psoralen Unit [id number] Rc Irr As1 Unit 310 [id number] Output: Urine 800 600 Straight 800 450 Other: Voiding Method Indwelling Catheter - Constitutional General appearance: Present: cooperative, no acute distress, thin - EENT Eyes: Present: anicteric sclerae, EOMI - Respiratory Respiratory: bilateral: diminished - Cardiovascular Rhythm: regular Heart sounds: normal: S1, S2 Abnormal Heart Sounds: Absent: systolic murmur, diastolic murmur, rub, S3 Gallop, S4 Gallop, click, other - Peripheral edema leg Peripheral Edema: bilateral: None - Gastrointestinal General gastrointestinal: Present: decreased bowel sounds, soft - Integumentary Integumentary: Present: pale - Neurologic Neurologic: Present: CNII-XII intact - Musculoskeletal Musculoskeletal: Present: generalized weakness - Psychiatric Psychiatric Comment(s): Alert, oriented x 2 - Labs CBC & Chem 7: 12/14/24 04:09 12/14/24 04:09 Labs: Abnormal Lab Results - Last 24 Hours (Table) 12/12/24 12/14/24 12/14/24 Range/Units 11:50 04:09 04:09 WBC 4.47 L (4.50-10.00) X 10*3/uL RBC 2.14 L (4.40-5.60) X 10*6/uL Hgb 6.7 A* (13.0-17.0) g/dL Hct 21.8 L (39.6-50.0) % MCV 101.9 H (80.0-97.0) FL MCHC 30.7 L (32.0-37.0) g/dL RDW 19.8 H (11.5-14.5) % Plt Count 4 A* (140-440) X 10*3/uL Lymphocytes # 0.18 L (0.90-5.00) X 10*3/uL Monocytes # 0.18 L (0.20-1.00) X 10*3/uL Eosinophils # 0 L (0.04-0.35) X 10*3/uL NRBC/100 WBC Diff 0.04 H (0.00-0.01) X 10*3/uL Immature Plt Fraction 24.7 H (1.1-6.1) % Macrocytosis (manual) 2+ A (None Seen) BUN 33.9 H (9.0-27.0) mg/dL BUN/Creatinine Ratio 42.38 H (12.00-20.00) Ratio Glucose 176 H (70-110) mg/dL Calcium 8.6 L (8.7-10.3) mg/dL Crossmatch See Detail Assessment and Plan (1) Compression fracture of T11 vertebra Current Visit: Yes Status: Acute Code(s): S22.080A - WEDGE COMPRESSION FRACTURE OF T11-T12 VERTEBRA, INIT SNOMED Code(s): 479044116 (2) Non-small cell lung cancer (NSCLC) Current Visit: Yes Status: Acute Code(s): C34.90 - MALIGNANT NEOPLASM OF UNSP PART OF UNSP BRONCHUS OR LUNG SNOMED Code(s): 838495975 (3) Antineoplastic chemotherapy induced pancytopenia Current Visit: Yes Status: Acute Code(s): D61.810 - ANTINEOPLASTIC CHEMOTHERAPY INDUCED PANCYTOPENIA; T45.1X5A - ADVERSE EFFECT OF ANTINEOPLASTIC AND IMMUNOSUP DRUGS, INIT SNOMED Code(s): 109361601630945 Plan: Metastatic non-small cell lung cancer -Initially presented with oligometastatic disease with left lower lobe and left adrenal gland pulmonary nodule, completed radiation therapy to the left adrenal gland nodule. -He has had multiple recurrences and subsequent therapy -Had recurrence in liver, initial liver biopsy was nondiagnostic, repeat liver biopsy on 06/03/2024 revealed metastatic squamous cell carcinoma -He received cycle 1 of carboplatin/gemcitabine on 07/01/2024 with poor tolerance due to grade 4 thrombocytopenia -He developed progression in the cervical spine, received palliative radiation t herapy to this lesion, that did not provide significant relief -Cycle 1 of weekly carboplatin/paclitaxel was started on 10/29/2024 and received cycle 2 of treatment on 12/07/2024. He has had difficulty with transportation along with intermittent weakness -MRI of the thoracic spine on 12/11/2024 has noted new metastatic lesions at T6 and T7 that were not previously visualized, but are not causing cord compression -MRI of the lumbar spine was not well-tolerated due to discomfort, planning to re-try. Rad Onc is seeing pt -I tried to re-interate the discussion Dr. Reddy had with him about concern fo r lack of response to treatment and that the plan was to give 1 more cycle of weekly treatment followed by staging CT scans but, pt did not seem to understand. Will cont to have this discussion -Continue current medical management and await repeat MRI of the lumbar spine Chemotherapy-induced pancytopenia, anemia -Hgb 6.7 today, 1 unit PRBCs ordered -Plt 4,000 today, transfuse 1 unit SDP. -WBC 4.7 with normal ANC, no intervention at this time -CBC in AM -Vitamin B12, folic acid, thyroid profile, all WNL, no specific supplement needed at this time
[2024-12-14 21:55] LABS: Glucose,Whole Blood 175 mg/dL (70-110)
--- NOTE | 2024-12-14 22:39 | XR ---
EXAM: XR Chest, 1 View CLINICAL HISTORY: ITS.REASON XR Reason: Resp distress TECHNIQUE: Frontal view of the chest. COMPARISON: Chest CT 09/28/2024 FINDINGS: Lungs: Eczematous changes. No consolidation or interstitial edema. Pleural space: No pleural effusion. No pneumothorax. Heart: Unremarkable. No cardiomegaly. IMPRESSION: Eczematous changes. No acute cardiopulmonary abnormality.
[2024-12-14 22:44] LABS: Anisocytosis Moderate; Basophils % (A) 0 %; Eosinophils % (A) 0 %; HCT 27.3 % (39.0-53.0); HGB 8.4 gm/dL (13.0-17.5); Hypochromasia Marked; Lymphocytes # (A) 0.5 k/uL (1.0-4.8); Lymphocytes % (A) 6 %; MCH 30.3 pg (25.0-35.0); MCHC 30.6 g/dL (31.0-37.0); MCV 98.9 fL (80.0-100.0); Macrocytosis Moderate; Monocytes # (A) 0.4 k/uL (0-1.0); Monocytes % (A) 5 %; Neutrophils # (A) 6.9 k/uL (1.3-7.7); Neutrophils % (A) 87 %; RBC 2.76 m/uL (4.30-5.90); RDW 20.6 % (11.5-15.5)
[2024-12-14 22:46] LABS: Platelet Count 31 k/uL (150-450)
[2024-12-14 22:50] LABS: ALT 365 U/L (4-49); African American GFR (CKD) >90 (>60 ml/min/1.73 sqM); Albumin 3.1 g/dL (3.5-5.0); Albumin/Globulin Ratio 1.3; Alkaline Phosphatase 348 U/L (38-126); Anion Gap 14 mmol/L; Blood Urea Nitrogen 46 mg/dL (9-20); Calcium 9.4 mg/dL (8.4-10.2); Carbon Dioxide 21 mmol/L (22-30); Chloride 100 mmol/L (98-107); Globulin 2.3 g/dL; Glucose 145 mg/dL (74-99); Magnesium 1.5 mg/dL (1.6-2.3); Non-African American GFR(CKD) 81 (>60 ml/min/1.73 sqM); Potassium 5.8 mmol/L (3.5-5.1); Sodium 135 mmol/L (137-145); Total Bilirubin 1.3 mg/dL (0.2-1.3); Total Protein 5.4 g/dL (6.3-8.2)
--- NOTE | 2024-12-14 22:55 | CT ---
EXAM: CT Head Without Intravenous Contrast CLINICAL HISTORY: ITS.REASON CT Reason: Neuro deficit, acute, stroke suspected TECHNIQUE: Axial computed tomography images of the head/brain without intravenous contrast. CTDI is 60.3 mGy and DLP is 1108.4 mGy-cm. This CT exam was performed using one or more of the following dose reduction techniques: automated exposure control, adjustment of the mA and/or kV according to patient size, and/or use of iterative reconstruction technique. COMPARISON: No relevant prior studies available. FINDINGS: Brain: No hemorrhage, extra-axial fluid collection, mass effect, or edema. Ventricles: Unremarkable. Bones/joints: Unremarkable. No fracture. Soft tissues: Unremarkable. Sinuses: No acute sinusitis. Mastoid air cells: Unremarkable as visualized. IMPRESSION: 1. No acute intracranial abnormality.
[2024-12-14 22:56] LABS: AST 811 U/L (17-59)
[2024-12-14 23:00] LABS: Glucose,Whole Blood 100 mg/dL (70-110)
--- NOTE | 2024-12-14 23:05 | CT ---
EXAM: CT Angiography Head With Intravenous Contrast CLINICAL HISTORY: ITS.REASON CT Reason: Neuro deficit, acute, stroke suspected TECHNIQUE: Axial computed tomographic angiography images of the head with intravenous contrast. CTDI is 14 mGy and DLP is 273.9 mGy-cm. This CT exam was performed using one or more of the following dose reduction techniques: automated exposure control, adjustment of the mA and/or kV according to patient size, and/or use of iterative reconstruction technique. MIP reconstructed images were created and reviewed. COMPARISON: No relevant prior studies available. FINDINGS: Artifacts: Images are degraded by motion artifact. Right internal carotid artery: Intracranial segment is patent with no significant stenosis. No aneurysm. Right anterior cerebral artery: No occlusion or significant stenosis. No aneurysm. Right middle cerebral artery: No occlusion or significant stenosis. No aneurysm. Right posterior cerebral artery: No occlusion or significant stenosis. No aneurysm. Right vertebral artery: Unremarkable as visualized. Left internal carotid artery: Intracranial segment is patent with no significant stenosis. No aneurysm. Left anterior cerebral artery: No occlusion or significant stenosis. No aneurysm. Left middle cerebral artery: No occlusion or significant stenosis. No aneurysm. Left posterior cerebral artery: No occlusion or significant stenosis. No aneurysm. Left vertebral artery: Unremarkable as visualized. Basilar artery: No occlusion or significant stenosis. No aneurysm. IMPRESSION: No acute findings in the arteries of the head/brain. EXAM: CT Angiography Neck With Intravenous Contrast CLINICAL HISTORY: ITS.REASON CT Reason: Neuro deficit, acute, stroke suspected TECHNIQUE: Routine carotid CT angiography protocol was performed with intravenous contrast. NASCET criteria using the distal ICAs for comparison were used for evaluation of stenoses. CTDI is 14 mGy and DLP is 273.9 mGy-cm. This CT exam was performed using one or more of the following dose reduction techniques: automated exposure control, adjustment of the mA and/or kV according to patient size, and/or use of iterative reconstruction technique. MIP reconstructed images were created and reviewed. COMPARISON: None. FINDINGS: VASCULATURE: Right common carotid artery: No occlusion or significant stenosis. No dissection. Right internal carotid artery: Extracranial segment is patent with no occlusion or significant stenosis. No dissection. Right vertebral artery: No occlusion or significant stenosis. No dissection. Left common carotid artery: No occlusion or significant stenosis. No dissection. Left internal carotid artery: Extracranial segment is patent with no occlusion or significant stenosis. No dissection. Left vertebral artery: No occlusion or significant stenosis. No dissection. NECK: Bones/joints: Unremarkable. No acute fracture. Soft tissues: Unremarkable. Lung apices: Severe emphysematous changes in the lungs. IMPRESSION: No acute findings in the arteries of the neck.
[2024-12-14] MEDS ORDERED: EPINEPHrine 10 ML SYRINGE (0.1 MG/ML) ONE (23:20)
[2024-12-14] MEDS ORDERED: CALCIUM CHLORIDE 100 MG/ML 10 ML SYRINGE ONE (23:20)
[2024-12-14] MEDS ORDERED: DEXTROSE 5% IN WATER 50 ML BAG ONE (23:20)
[2024-12-14] MEDS ORDERED: AMIODARONE 50 MG/ML 3 ML VIAL IV ONE (23:20)
[2024-12-14] MEDS ORDERED: ATROPINE SULFATE 0.1 MG/ML 10ML SYRINGE ONE (23:20)
[2024-12-14] MEDS ORDERED: SODIUM BICARB 8.4% 50 ML SYR (1 MEQ/ML) ONE (23:20)
[2024-12-14 23:24] LABS: Glucose,Whole Blood 101 mg/dL (70-110)
[2024-12-14] MEDS: DEXTROSE 5% IN WATER 100 ML with AMIODARONE 150 MG IV ONE (23:30)
[2024-12-14] MEDS: NOREPINEPHRINE 4 MG in SODIUM CHLORIDE 0.9% 250 ML IV SCH (23:35)
[2024-12-14] MEDS: AMIODARONE 360 MG in DEXTROSE 5% IN WATER 200 ML IV ONE (23:40)
--- NOTE | 2024-12-15 00:12 | XR ---
EXAM: XR Chest, 1 View CLINICAL HISTORY: ET tube placement TECHNIQUE: Frontal view of the chest. COMPARISON: 12/14/2024. FINDINGS: Costophrenic angles are excluded. Endotracheal tube has been placed with the tip 4.1 cm above the kim. Heart is normal in size. Hyperinflation with bullous changes greatest lung bases pleural- parenchymal scarring in the upper lobes. No pleural effusion or pneumothorax. Bones are unchanged. IMPRESSION: Endotracheal tube tip 4.1 cm above the kim. Otherwise no definite change.
[2024-12-15] MEDS ORDERED: INSULIN REGULAR 100 UNIT/ML VIAL (IV) IV ONE (00:23)
[2024-12-15] MEDS ORDERED: DEXTROSE 50% SYRINGE 50 ML IVP ONE (00:23)
[2024-12-15] MEDS: VASOPRESSIN 20 UNIT in SODIUM CHLORIDE 0.9% 50 ML IV SCH (00:25)
[2024-12-15] MEDS: MAGNESIUM SULFATE-D5W PMX 1 GM in DEXTROSE/WATER 1 100ML.BAG IVPB SCH (00:30)
[2024-12-15 00:34] LABS: ABG Base Excess 26.3 mmol/L; ABG Oxygen Saturation >100.0 % (94-97); ABG PH 7.46 (7.35-7.45); ABG PO2 368 mmHg (83-108); ABG TCO2 55 mmol/L (19-24)
[2024-12-15 00:41] LABS: ABG PCO2 74 mmHg (35-45)
[2024-12-15 00:42] LABS: ABG HCO3 53 mmol/L (21-25); Allen Test Performed? no
[2024-12-15] MEDS: SODIUM BICARB 8.4% 50 ML SYR (1 MEQ/ML) IV STA (00:47)
[2024-12-15] MEDS ORDERED: LORazepam 2 MG/ML INJ IV PRN (00:53)
[2024-12-15] MEDS ORDERED: MORPHINE SULFATE 100 MG in SODIUM CHLORIDE 0.9% 90 ML IV SCH (01:15)
[2024-12-15 01:18] VITALS: BP 82/28; PULSE 101; RESP 14
[2024-12-15] MEDS: MORPHINE SULFATE 4 MG/ML SYRINGE IVP PRN ×2 (02:00→02:13)
[2024-12-15] MEDS: SCOPOLAMINE 1 MG/72 HR PATCH TRANSDERM SCH (02:02)
[2024-12-15] MEDS: ATROPINE OPHTH SOLN 1% 5ML BTL SUBLINGUAL PRN (02:02)
--- NOTE | 2024-12-15 02:12 | P.CNPUL ---
History of Present Illness Consult date: 12/15/24 Requesting physician: Deepak Ott Reason for consult: other (Cardiac arrest) Chief complaint: In hospital cardiac arrest History of present illness: Patient code stroke for acute mental status changes at 2213. During the code stroke, patient noted to have runs of ventricular tachycardia with a pulse. Patient was then transferred to the intensive care unit in critical condition. Subsequently, patient had witnessed PEA cardiac arrest. A CODE BLUE was called overhead. Myself and sound physicians did respond to the CODE BLUE. On my arrival, patient is back in ventricular tachycardia, patient did have a pulse, was synchronized cardioverted with 75 J. Patient was intubated at 2328 by ARCHITECTURAL ASSOCIATE. Patient was then loaded with amiodarone 150 mg. Subsequent events of ventricular tachycardia which decompensated into ventricular fibrillation. ACLS protocol was followed. Patient had a downtime of approximately 14 minutes. Following ROSC, patient appears to have some diffuse ST segment changes, involving 2, 3, aVF, V1, V2. patient's family was called, and they did present to the bedside. They did make the patient a DO NOT RESUSCITATE. They would not like any further aggressive interventions such as heart catheterization. Of note, patient had recent hospitalization last month for a non-ST elevation [place]. Recent available echocardiogram from November 19, 2024 demonstrating preserved left ventricular ejection fraction of 55 to 60%. No significant valvular abnormalities reported. 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 Reportedly had positive liver biopsy. Patient originally admitted back on 12/11/2024 with lower extremity paresthesias and weakness and trouble walking. He has lytic lesions of the thoracic spine, and a new T11 superior endplate compression fracture with mild anterior height loss, no significant retropulsion. He is currently undergoing rounds of chemotherapy including carboplatin/paclitaxel. Also, was undergoing palliative radiation to the thoracic spine. His oncologist is Dr. Reddy. In addition, patient has history of COPD. I did speak to the patient's mother who is at the bedside. Patient has had progressive decline in his functional status over the last 2 to 3 months. Patient is intubated mechanical ventilator. Current ventilator settings assist- control, respiratory rate 20, tidal volume 300, FiO2 50%, and PEEP of 5. ABGs on current settings includes a PaO2 of 368, pCO2 74, pH of 7.46. Postintubation chest x-ray showing endotracheal tube terminating above the kim. He is on propofol which is infusing at 15 mcg/kg/min. He is breathing over the ventilator set rate around 30 breaths/min. He is unresponsive despite minimal sedation. Extremities are flaccid, and does not withdraw to painful stimuli. Current rhythm appears sinus tachycardia on bedside monitor, rate around 110 bpm. Blood pressure remains hypotensive 85/69 mmHg. Patient is maxed out on vasopressors including norepinephrine which is infusing at 0.5 mcg/kg/min as well as vasopressin which is infusing at physiological dose. Amiodarone continues at 1 mg/min. He has severe JVD as well as lower extremity pitting edema. Patient did have elevated troponin drawn during the code stroke. Elevated at 19. Cardiology was consulted and updated. Heparin was not started due to the patient's severe pancytopenia. Most recent CBC with a WBC count up to 8, hemoglobin 8.4, platelets 31,000. Noted the patient's previously received 1 unit PRBC and 1 unit platelets. No bleeding was noted during this admission. Most recent CMP following his cardiac arrest includes a sodium 135, potassium 5.8, chloride 100, serum bicarb 21, BUN 46, creatinine 0.96, glucose 145. Magnesium was 1.5 and this was replaced. LFTs are elevated with an AST of 811, ALT of 365, ALP of 348. Case reviewed with my supervising physician over the phone. No further recommendations at this time. Review of Systems ROS unobtainable: due to endotracheal tube, due to mental status Past Medical History Past Medical History: Cancer, COPD, Osteoarthritis (OA) Additional Past Medical History / Comment(s): lung cancer, radiation and chemo, spinal CA History of Any Multi-Drug Resistant Organisms: None Reported Past Surgical History: Tonsillectomy Additional Past Surgical History / Comment(s): stent in aorta, stents in iliac artery, lobectomy right upper lung Past Psychological History: No Psychological Hx Reported Smoking Status: Current every day smoker - Past Family History Father History Unknown: Yes Family Medical History: Cancer Additional Family Medical History / Comment(s): Lung cancer. Medications and Allergies Home Medications Medication Instructions Recorded Confirmed Type RX: Albuterol Sulfate [Albuterol 2 puff PO RT-QID PRN 11/19/24 12/11/24 History Sulfate Hfa] RX: Morphine Sulfate ER [Ms Contin] 15 mg PO Q12HR 11/19/24 12/11/24 History RX: Morphine Sulfate Ir [MSIR] 15 mg PO Q4H 11/19/24 12/11/24 History Sennosides-Docusate Sodium 1 tab PO BID 12/11/24 12/11/24 History [Senokot-S] Allergies Allergy/AdvReac Type Severity Reaction Status Date / Time No Known Allergies Allergy Verified 12/11/24 07:21 Physical Exam Vitals: Vital Signs Temp Pulse Pulse Resp BP BP Pulse Ox 12/14/24 22:24 153 H 103/63 12/14/24 22:17 73 90/65 100 12/14/24 22:07 150 H 90/65 12/14/24 22:01 125 H 110/66 12/14/24 21:59 128 H 119/61 12/14/24 21:55 148 H 78/58 12/14/24 21:53 148 H 75/54 94 L 12/14/24 20:02 92 12/14/24 19:56 97.9 F 60 12 116/70 93 L 12/14/24 19:53 90 12/14/24 17:56 97.7 F 87 16 111/74 12/14/24 15:14 97.8 F 94 16 111/82 12/14/24 14:36 97.7 F 105 H 16 96/54 90 L 12/14/24 12:00 97.4 F L 116 H 18 121/78 12/14/24 11:58 97.6 F 115 H 16 94/56 12/14/24 11:38 97.4 F L 16 121/78 12/14/24 07:08 96.9 F L 63 18 101/69 12/14/24 05:17 87 12/14/24 05:04 90 12/14/24 01:21 97.4 F L 70 16 103/64 99 Intake and Output 12/14/24 12/14/24 12/15/24 14:59 22:59 06:59 Intake Total 310 269 Output Total 375 Balance 310 -106 Intake: Blood Product 310 269 Platelet Pheresis Pas 0 269 Psoralen Unit [id number] Rc Irr As1 Unit 310 [id number] Output: Urine 375 Other: Voiding Method Indwelling Catheter Indwelling Catheter GENERAL EXAM: Minimally sedated, unresponsive, flaccid extremities, intubated to the mechanical ventilator, breathing above set rate. HEAD: Normocephalic and atraumatic EYES: Normal reaction of pupils, equal size. NOSE: Clear with pink turbinates. THROAT: No erythema or exudates. NECK: Severe jugular venous distention CHEST: No chest wall deformity. LUNGS: Equal air entry with markedly diminished lung sounds throughout.. No significant airway secretions. Peak pressures 28. CVS: S1 and S2 distant with no audible murmur, regular rhythm. No extra heart sounds ABDOMEN: No hepatosplenomegaly, active bowel sounds, no guarding or rigidity. SPINE: No scoliosis or deformity SKIN: No rashes CENTRAL NERVOUS SYSTEM: No focal deficits, tone is normal in all 4 extremities. EXTREMITIES: There is 2-3+ pitting edema of the lower extremities. No clubbing or cyanosis. Peripheral pulses are intact. Results - Laboratory Findings CBC and BMP: 12/14/24 22:08 12/14/24 22:08 Abnormal lab findings: Abnormal Labs 12/10/24 12/10/24 12/10/24 22:06 22:06 22:06 WBC RBC 2.81 L Hgb 8.6 L Hct 28.1 L MCV 100.2 H MCHC 30.7 L RDW 20.1 H Plt Count 34 L D Lymphocytes # 0.3 L Monocytes # Eosinophils # NRBC/100 WBC Diff Immature Plt Fraction Macrocytosis (manual) Sodium 136 L Potassium Chloride 97 L Carbon Dioxide 32 H BUN 25 H Creatinine BUN/Creatinine Ratio Glucose 147 H POC Glucose (mg/dL) Plasma Lactic Acid Jose Elias 2.9 H* Calcium Magnesium 1.2 L AST 198 H ALT Alkaline Phosphatase 177 H Troponin I Total Protein 5.5 L Albumin 3.0 L Crossmatch 12/11/24 12/11/24 12/12/24 10:06 10:06 03:19 WBC RBC 2.80 L Hgb 8.6 L Hct 28.5 L MCV 101.7 H MCHC 30.3 L RDW 19.7 H Plt Count 29 L Lymphocytes # 0.2 L Monocytes # Eosinophils # NRBC/100 WBC Diff Immature Plt Fraction Macrocytosis (manual) Sodium 133 L Potassium Chloride Carbon Dioxide BUN Creatinine 0.65 L BUN/Creatinine Ratio 30.71 H Glucose 166 H 206 H POC Glucose (mg/dL) Plasma Lactic Acid Jose Elias Calcium 8.0 L 8.2 L Magnesium AST ALT Alkaline Phosphatase Troponin I Total Protein Albumin Crossmatch 12/12/24 12/12/24 12/14/24 03:19 11:50 04:09 WBC 4.47 L RBC 2.34 L 2.14 L Hgb 7.1 L 6.7 A* Hct 23.9 L 21.8 L MCV 102.1 H 101.9 H MCHC 29.7 L 30.7 L RDW 20.0 H 19.8 H Plt Count 16 A* 4 A* Lymphocytes # 0.21 L 0.18 L Monocytes # 0.10 L 0.18 L Eosinophils # 0.01 L 0 L NRBC/100 WBC Diff 0.04 H Immature Plt Fraction 14.9 H 24.7 H Macrocytosis (manual) 2+ A 2+ A Sodium Potassium Chloride Carbon Dioxide BUN Creatinine BUN/Creatinine Ratio Glucose POC Glucose (mg/dL) Plasma Lactic Acid Jose Elias Calcium Magnesium AST ALT Alkaline Phosphatase Troponin I Total Protein Albumin Crossmatch See Detail 12/14/24 12/14/24 12/14/24 04:09 21:48 22:08 WBC RBC 2.76 L Hgb 8.4 L Hct 27.3 L MCV MCHC 30.6 L RDW 20.6 H Plt Count 31 L Lymphocytes # 0.5 L Monocytes # Eosinophils # NRBC/100 WBC Diff Immature Plt Fraction Macrocytosis (manual) Sodium Potassium Chloride Carbon Dioxide BUN 33.9 H Creatinine BUN/Creatinine Ratio 42.38 H Glucose 176 H POC Glucose (mg/dL) 175 H Plasma Lactic Acid Jose Elias Calcium 8.6 L Magnesium AST ALT Alkaline Phosphatase Troponin I Total Protein Albumin Crossmatch 12/14/24 12/14/24 22:08 22:08 WBC RBC Hgb Hct MCV MCHC RDW Plt Count Lymphocytes # Monocytes # Eosinophils # NRBC/100 WBC Diff Immature Plt Fraction Macrocytosis (manual) Sodium 135 L Potassium 5.8 H Chloride Carbon Dioxide 21 L BUN 46 H Creatinine BUN/Creatinine Ratio Glucose 145 H POC Glucose (mg/dL) Plasma Lactic Acid Jose Elias Calcium Magnesium 1.5 L AST 811 H ALT 365 H Alkaline Phosphatase 348 H Troponin I 19.000 H* Total Protein 5.4 L Albumin 3.1 L Crossmatch - Diagnostic Findings Chest x-ray: image reviewed Assessment and Plan Assessment: Witnessed in hospital cardiac arrest, presenting rhythm PEA and subsequently ventricular tachycardia, ACLS protocol was followed, patient was intubated by the ARCHITECTURAL ASSOCIATE, ROSC was achieved after approximately 14 minutes downtime. Patient was loaded with amiodarone during the resuscitation. Continues on amiodarone at 1 mg/min. Acute hypoxemic respiratory failure, requiring intubation to the mechanical ventilator, secondary to above Hypotension and shock, currently maxed on vasopressors in the form of norepinephrine and vasopressin Acute coronary syndrome Consider anoxic brain injury in the setting of prolonged downtime Pancytopenia, status post 1 unit PRBC and 1 platelet History of stage IV squamous cell carcinoma, Most recent PET scan from April, showing progression of the disease with new increasing metabolic activity within T1 and T4 vertebral bodies. New lesions in the right hepatic lobe and decreased volume but increased metabolic activity in the left adrenal gland. Follows with oncology, previous rounds of chemo/radiation, currently on carboplatin/paclitaxel was started on 10/29/2024 and received cycle 2 of treatment on 12/07/2024. New pathologic fracture of T11 Transaminitis, possibly secondary to hypotension and shock, patient also has history of metastatic liver disease. Hypomagnesemia, replaced Hyperkalemia, potassium 5.8, treated with 1 g calcium chloride, 10 units regular insulin, 1 amp D50 W Severe protein calorie malnutrition, with a BMI 15.6 kg/m COPD Plan: After prolonged conversation with family present at bedside, including the patient's mother, they are asking this patient to be made comfortable, with comfort care measures. They do not want any further aggressive measures to be taken. They are asking to take the patient off the mechanical ventilator and allow the patient to pass with dignity. A sewage screen operator is coming in to provide last rights. Time with Patient: Greater than 30
[2024-12-15] MEDS ORDERED: AMIODARONE 450 MG in DEXTROSE 5% IN WATER 250 ML IV SCH (05:30)
--- NOTE | 2024-12-15 05:50 | P.EN ---
Code Blue Note Activated at 2321. Arrived at the scene shortly after. Reviewed the chart in detail and discussed the case with RN. The patient had reportedly become unresponsive and bradycardic. He was subsequently found to be pulseless and thereby ACLS protocol was initiated with CPR. Upon arrival the patient was noted to be in asystole. The patient was given epinephrine IV push x 3, calcium chloride x 1, and sodium bicarbonate x 1. He was noted to be in pulseless V. tach and V-fib several times for which she was shocked. He was subsequently given amiodarone 300 mg IV followed by 150 mg IV. Return of spontaneous circulation was achieved at 2335. Case was discussed with the patient's family. Questions were answered. Primary team and bleach maker were notified by the RN. Please refer to the code sheet for further details.
[2024-12-15] MEDS ORDERED: CHLORHEXIDINE GLUCONATE 15 ML CUP MUCOUS MEM SCH (09:00)
--- NOTE | 2024-12-15 19:06 | P.DS ---
Providers Date of admission: 12/12/24 13:15 Expected date of discharge: 12/15/24 () Attending physician: Deepak Ott Consults: 12/11/24 02:53 Consult Physician Urgent Consulting Provider: Chele Chang Consult Reason/Comments: t11 compression fracture Do you want consulting provider notified?: Yes 12/11/24 09:34 Consult Physician Urgent Consulting Provider: Dennys Jackson Consult Reason/Comments: lytic spinal lesions with new le paresthesias Do you want consulting provider notified?: Yes 12/12/24 11:03 Consult Physician Urgent Consulting Provider: Eneida Reddy Consult Reason/Comments: lung cancer, sever thrombocytopenia Do you want consulting provider notified?: Yes 12/14/24 23:15 Consult Physician Stat Consulting Provider: Katiana Del Toro Consult Reason/Comments: ICU management Do you want consulting provider notified?: Already Contacted 12/14/24 23:19 Consult Physician Stat Consulting Provider: Eduard Morales Consult Reason/Comments: trops elevated Do you want consulting provider notified?: Yes Primary care physician: [facility] Course: This is a 69 year old male medical history of non small cell lung cancer has completed 10 rounds of radiation, and currently undergoing chemotherapy with last infusion on Saturday. Patient states for the last 2 weeks he has been experiencing left lower extremity weakness and parasthesias. In the last 24 hours he is now experiencing weakness in the right leg and states his legs are giving out and he has fallen multiple times. He continues to smoker, additional medical history of COPD, and known T4 and T1 lytic lesions. Patient has not had any fever or chills. He has not had any loss of bowel or bladder. No upper extremity weakness. He is not having any shortness of breath or chest pain. He is awake alert oriented. Thoracic lumbar spine CT on admit reveals T11 superior endplate compression with mild anterior height loss. No significant retropulsion. Similar lytic lesions/metastases involving the T1 vertebral body and left T4 transverse process. Similar fracture of the left T4 transverse process/pathologic fracture. Degenerative changes of the lumbar spine, similar to prior. Most severe at L4-L5. Diffuse disc bulge and facet arthropathy with moderate canal stenosis. Severe right foraminal stenosis and moderate left foraminal stenosis. Severe emphysema and multiple lung nodules, partially visualized. some nodules are new since the prior/increased metastases. Increased size of the partially visualized right hepatic lobe lesion/metastases. Initial labs reveal white blood cell count 7.7, hgb 8.6, platelet count of 34, sodium 136, potassium 4.4, BUN 25, creatinine 0.80, lactic acid 2.9, AST 198, alk phos 177. Patient admitted with PT/OT consultation and consults to orthopedic spinal and radiation oncology. He was started on dexamethasone 4 mg 4 times daily. 12/12 Patient still complains from back pain but looks better controlled, currently is 2/10 at rest but gets worse if he moves around. Nevertheless patient looks comfortable and pleasant watching TV with family/friend at bedside No other pain or new complaint Patient seen in bed most of the time Platelet count dropped from 34 down to 16, hemoglobin down from 8.6-7.1, leukocyte count is normal. However there is no evidence of bleeding. Hematology/oncology consult was requested for this reason we will prefer to continue monitoring. However type and screen is requested in case of complication We will hold off on platelet blood transfusion for now Patient had thoracic MRI showing metastatic disease of T1, T6 and T7 vertebral body with no significant spinal stenosis and there is acute/subacute compression fracture of T9 and T11 Patient did not finish the whole part of the MRI, next part will be done on Saturday because it requires contrast and it would be too soon to do it today or tomorrow 12/13 Patient is awake alert sitting in bed He seems little congested however he is not significantly tachypneic and he is continued on room air He has low appetite except for Ensure He is kept on normal sinus 75 mL/h and but because of the increased swelling especially in the legs we will give one-time dose of Lasix and lower the rate to 40 to 50 mL/h Tomorrow patient planned for the other part of the MRI of the cervical spine and lumbar spine B12 and thyroid function were acceptable folate is on the low normal side, replacement started with folic acid Check labs in the morning. Discussed with staff December 14: Reclining bed. Oral intake about 25%. r. Some pain present. Pending MRI lumbar spine this afternoon. Spoke to Tia DOSHI from oncology. Further treatment from the standpoint follow-up outpatient. Had a BM yesterday. December 15: Overnight patient took a turn for the worse. Had removed to the ICU. Succumb to his underlying conditions this morning. INVESTIGATIONS, reviewed in the clinical context: December 14: White count 4.4 hemoglobin 6.7 platelets 4 sodium 136 potassium 4.9 creatinine 0.8 glucose 176 B12 838 folate 6.6 TSH 1.1 Thoracic spine MRI: Metastatic disease T1 T6-T7. Acute/subacute compression fracture of T9 T11 vertebral bodies with 25% loss of significant retropulsion. Cause of : Metastatic non-small cell lung cancer Assessment and plan: Intractible back pain Bilateral lower extremity weakness with paresthesias left greater than right likely from the new T11 compression fracture - thoracic MRI showing metastatic disease of T1, T6 and T7 vertebral body with no significant spinal stenosis and there is acute/subacute compression fracture of T9 and T11 Generalized weakness and falls from above Fall with head trauma and patient has a well healing abrasion/bruising to the left eye Metastatic Non-small cell lung cancer with chemotherapy in November2023 and has completed 10 rounds of radiation in August of last year. Concern from oncology about chemotherapy not working New compression fracture of T9 and T11.-Pending lumbar spine MRI. TLSO brace delivered on December 11, 2024. 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 Disposition: Patient Plan - Discharge Summary Discharge Rx Participant: No New Discharge Prescriptions: No Action Morphine Sulfate Ir [MSIR] 15 mg PO Q4H Morphine Sulfate ER [Ms Contin] 15 mg PO Q12HR Albuterol Sulfate [Albuterol Sulfate Hfa] 2 puff PO RT-QID PRN PRN Reason: Shortness Of Breath Sennosides-Docusate Sodium [Senokot-S] 1 tab PO BID Discharge Medication List Albuterol Sulfate [Albuterol Sulfate Hfa] 2 puff PO RT-QID PRN 11/19/24 [History] Morphine Sulfate ER [Ms Contin] 15 mg PO Q12HR 11/19/24 [History] Morphine Sulfate Ir [MSIR] 15 mg PO Q4H 11/19/24 [History] Sennosides-Docusate Sodium [Senokot-S] 1 tab PO BID 12/11/24 [History] Discharge Disposition: - Preliminary Cause of Preliminary Cause of : Metastatic non-small cell lung cancer
== END 2024-12-15 05:23 | disposition expired | DRG 542 ==
LOC: EC 21:12 → 3SCARD 12-11 02:53 → 5NMEDONC 12-11 04:20 → OBSVTOIN 12-12 13:15 → 2SICU 12-14 22:59
PROVIDERS: ADMIT Hospitalist; ATTEND Hospitalist
PROC: 5A12012 Performance of Cardiac Output, Single, Manual (ICD-10-PCS; principal; 2024-12-14)
PROC: 3E043XZ Introduction of Vasopressor into Central Vein, Percutaneous Approach (ICD-10-PCS; principal; 2024-12-14)
PROC: 0D9670Z Drainage of Stomach with Drainage Device, Via Natural or Artificial Opening (ICD-10-PCS; principal; 2024-12-14)
PROC: 5A1935Z Respiratory Ventilation, Less than 24 Consecutive Hours (ICD-10-PCS; principal; 2024-12-14)
PROC: 0BH17EZ Insertion of Endotracheal Airway into Trachea, Via Natural or Artificial Opening (ICD-10-PCS; principal; 2024-12-14)
DX: M84.58XA Pathological fracture in neoplastic disease, other specified site, initial encounter for fracture (principal); D61.810 Antineoplastic chemotherapy induced pancytopenia; E43 Unspecified severe protein-calorie malnutrition; I21.4 Non-ST elevation (NSTEMI) myocardial infarction; J96.01 Acute respiratory failure with hypoxia; C78.7 Secondary malignant neoplasm of liver and intrahepatic bile duct; R57.9 Shock, unspecified; C79.72 Secondary malignant neoplasm of left adrenal gland; C34.90 Malignant neoplasm of unspecified part of unspecified bronchus or lung; J43.9 Emphysema, unspecified; D53.9 Nutritional anemia, unspecified; I47.20 Ventricular tachycardia, unspecified; I24.9 Acute ischemic heart disease, unspecified; E87.20 Acidosis, unspecified; E87.1 Hypo-osmolality and hyponatremia; Z68.1 Body mass index [BMI] 19.9 or less, adult; I46.9 Cardiac arrest, cause unspecified; I49.01 Ventricular fibrillation; Z51.5 Encounter for palliative care; D69.59 Other secondary thrombocytopenia; R79.89 Other specified abnormal findings of blood chemistry; Z66 Do not resuscitate; T45.1X5A Adverse effect of antineoplastic and immunosuppressive drugs, initial encounter; R29.6 Repeated falls; R00.1 Bradycardia, unspecified; R59.0 Localized enlarged lymph nodes; R20.2 Paresthesia of skin; R26.9 Unspecified abnormalities of gait and mobility; F17.200 Nicotine dependence, unspecified, uncomplicated; E83.42 Hypomagnesemia; E86.1 Hypovolemia; E87.5 Hyperkalemia; M47.816 Spondylosis without myelopathy or radiculopathy, lumbar region; S09.90XD Unspecified injury of head, subsequent encounter; W19.XXXD Unspecified fall, subsequent encounter; Z79.899 Other long term (current) drug therapy; Z92.3 Personal history of irradiation
CPT/HCPCS: 36415; 36600; 70450; 70496; 70498; 71045; 72128; 72131; 72157; 80048; 80053; 82607; 82746; 82805; 83605; 83735; 84443; 84484; 85025; 86850; 86900; 86901; 86920; 92950; 93005; 94640; 96361; 96365; 96366; 96375; 99285